=== PATIENT | female | born 1965 | race American Indian/Alaskan Native ===

== ENCOUNTER 2021-05-26 14:46 | Inpatient (IN) | payer MEDICARE ==
[2021-05-26] MEDS ORDERED: HYDROmorphone 1 MG/1 ML INJ IM ONE ×2 (17:24→18:00)
--- NOTE | 2021-05-26 17:59 | Event Note ---
ED Screening Note ED Screening Note: 55-year-old female presents to the ED complaining left femur pain unable to ambulate. Patient has a chronic history of chronic pain. This initial assessment/diagnostic orders/clinical plan/treatment(s) is/are subject to change based on patients health status, clinical progression and re- assessment by fellow clinical providers in the ED. Further treatment and workup at subsequent clinical providers discretion. Patient/guardian urged not to elope from the ED as their condition may be serious if not clinically assessed and managed. Initial orders include: X-ray imaging and medication
--- NOTE | 2021-05-26 18:06 | XRay Report ---
LEFT HIP 2 VIEW(S) INDICATION / CLINICAL INFORMATION: hip pain COMPARISON: None available. FINDINGS: BONES / JOINT(S): There is a moderately displaced subcapital femoral fracture. No significant arthrit is. SOFT TISSUES: No significant abnormality. ADDITIONAL FINDINGS: None. Signer Name: Kavon Egan DO Signed: 05/26/2021 6:01 PM Workstation Name: [id number]
[2021-05-26] MEDS ORDERED: ONDANSETRON 4 MG/2 ML INJ IV ONE (18:08)
--- NOTE | 2021-05-26 18:13 | Emergency Department Report ---
HPI - General Chief Complaint: Pain General Time Seen by Provider: 05/26/21 17:58 - [facility] HPI: Room 25 The patient is a 55-year-old female present with a chief complaint of left hip pain after fall. Patient states this morning while getting out of the bed she believes she did not put her shoe on completely and she fell twisting her left hip. Patient states she been unable to walk since. Patient denies loss of consciousness. Patient gives her pain a score of 10/10. Of note the patient states her daughter has a history of malignant hyperthermia ED Past Medical Hx - Past Medical History Additional medical history: Neurologic sarcoidosis, fibromyalgia, peripheral neuropathy, right foot drop - Surgical History Past Surgical History?: No Additional Surgical History: Back surgery, thyroid nodule removal - Family History Family history: other (Daughter with history of malignant hyperthermia) - Social History Smoking Status: Former Smoker (None x30 years) Substance Use Type: Alcohol (Rarely), Marijuana ED Review of Systems ROS: Stated complaint: FALL INJURY/LEG PAIN Other details as noted in HPI Constitutional: no symptoms reported Eyes: denies: eye pain ENT: denies: throat pain Respiratory: no symptoms reported Cardiovascular: denies: chest pain Endocrine: no symptoms reported Gastrointestinal: denies: abdominal pain Musculoskeletal: arthralgia Neurological: denies: headache Physical Exam - Physical Exam Vital Signs: Vital Signs 05/26/21 05/26/21 14:56 17:26 Temperature 98.3 F Pulse Rate 87 Respiratory 17 20 Rate Blood Pressure 118/90 [Right] O2 Sat by Pulse 99 Oximetry Physical Exam: GENERAL: The patient is well-developed well-nourished female lying on stretcher in the right lateral decubitus position appearing to be in moderate discomfort. [] HEENT: Normocephalic. Atraumatic. Extraocular motions are intact. Patient has moist mucous membranes. NECK: Supple. Trachea midline CHEST/LUNGS: Clear to auscultation. There is no respiratory distress noted. HEART/CARDIOVASCULAR: Regular. There is no tachycardia. There is no gallop rub or murmur. 2+ left DP ABDOMEN: Abdomen is soft, nontender. Patient has normal bowel sounds. There is no abdominal distention. SKIN: There is no rash. There is no edema. There is no diaphoresis. NEURO: The patient is awake, alert, and oriented. The patient is cooperative. The patient has no focal neurologic deficits. The patient has normal speech. GCS 15 MUSCULOSKELETAL: There is pain and decreased range of motion of the left hip. ED Course Vital Signs 05/26/21 05/26/21 14:56 17:26 Temperature 98.3 F Pulse Rate 87 Respiratory 17 20 Rate Blood Pressure 118/90 [Right] O2 Sat by Pulse 99 Oximetry - Consultations Consultation #1: 05/26/21 18:10 Orthopedic surgery paged 05/26/21 18:41 Case discussed with and x-ray results sent to orthopedic surgeon Dr. Valentin ED Medical Decision Making - Radiology Data Radiology results: report reviewed (Right hip x-ray), image reviewed (Left hip x-ray) interpreted by me: Left hip [id number] neck fracture [facility] [address] [place] [address] XRay Report Signed Patient: FAUSTINO HUMPHREY MR#: [id number] : 1965 Acct:[id number] Age/Sex: 55 / F ADM Date: 05/26/21 Loc: ED Attending Dr: Ordering Physician: CHERYL SHIELDS Date of Service: 05/26/21 Procedure(s): XR hip 2-3V LT Accession Number(s): [id number] cc: CHERYL SHIELDS Fluoro Time In Minutes: LEFT HIP 2 VIEW(S) INDICATION / CLINICAL INFORMATION: hip pain COMPARISON: None available. FINDINGS: BONES / JOINT(S): There is a moderately displaced subcapital femoral fracture. No significant arthritis. SOFT TISSUES: No significant abnormality. ADDITIONAL FINDINGS: None. Signer Name: Kavon Ruff DO Signed: 05/26/2021 6:01 PM Workstation Name: [id number] Transcribed By: FAN Dictated By: KAVON RUFF DO Electronically Authenticated By: KAVON RUFF DO Signed Date/Time: 05/26/211800 DD/ 00 TD/TT: - Differential Diagnosis Femoral neck fracture Critical care attestation.: If time is entered above; I have spent that time in minutes in the direct care of this critically ill patient, excluding procedure time. ED Disposition Clinical Impression: Femoral neck fracture Disposition: 09 ADMITTED INPATIENT Is pt being admited?: Yes Does the pt Need Aspirin: No Condition: Stable Time of Disposition: 18:41 (Hospitalist called (Dr. Finch))
[2021-05-26 19:16] LABS: Hemoglobin 11.5 gm/dl (10.1-14.3); Mean Corpuscular HGB Conc 34 % (30-34); Mean Corpuscular Volume 86 fl (79-97); Red Blood Count 3.96 M/mm3 (3.65-5.03)
[2021-05-26 19:25] LABS: Platelet Count 164 K/mm3 (140-440)
[2021-05-26 19:27] LABS: BUN/Creatinine Ratio 2; Blood Urea Nitrogen 2 mg/dL (7-17); Calcium 9.7 mg/dL (8.4-10.2); Hemolysis Index 26; INR 0.95 (0.87-1.13)
--- NOTE | 2021-05-26 19:27 | History and Physical Report ---
History of Present Illness Date of examination: 05/26/21 Date of admission: May 26, 2021 Chief complaint: Left hip pain after a fall couple of hours ago History of present illness: 55-year-old female with history of fibromyalgia, neurologic sarcoidosis, peripheral neuropathy and right foot drop with frequent falls because of the right foot drop comes in for a fall followed by a left hip pain. Patient had a left ankle fracture few years ago and was put in a cast at that time. Patient attributes her falls to the right foot drop. Pain is about 8 on a scale of 1- 10. Exacerbated by movement. Relieved by rest. Pain is localized to the left hip region. Sharp in nature. Unable to walk. - Past Medical History Additional medical history: Neurologic sarcoidosis, fibromyalgia, peripheral n europathy, right foot drop - Surgical History Past Surgical History?: No Additional Surgical History: Back surgery, thyroid nodule removal - Family History Family history: other (Daughter with history of malignant hyperthermia) - Social History Smoking Status: Former Smoker (None x30 years) Substance Use Type: Alcohol (Rarely), Marijuana Review of Systems ROS: Stated complaint: FALL INJURY/LEG PAIN Other details as noted in HPI Constitutional: no symptoms reported Eyes: denies: eye pain ENT: denies: throat pain Respiratory: no symptoms reported Cardiovascular: denies: chest pain Endocrine: no symptoms reported Gastrointestinal: denies: abdominal pain Musculoskeletal: arthralgia Neurological: denies: headache Medications and Allergies Allergies Allergy/AdvReac Type Severity Reaction Status Date / Time erythromycin base Allergy Unknown Verified 05/26/21 17:10 methotrexate Allergy Rash Verified 05/26/21 17:10 Exam - Constitutional Vitals: Temp Pulse Resp BP Pulse Ox 98.3 F 87 20 118/90 99 05/26/21 14:56 05/26/21 14:56 05/26/21 17:26 05/26/21 14:56 05/26/21 14:56 General appearance: Present: no acute distress, well-nourished - EENT Eyes: Present: PERRL ENT: hearing intact, clear oral mucosa - Neck Neck: Present: supple, normal ROM - Respiratory Respiratory effort: normal Respiratory: bilateral: CTA - Cardiovascular Heart rate: 78 Rhythm: regular Heart Sounds: Present: S1 & S2. Absent: rub, click - Extremities Extremities: no ischemia, pulses symmetrical, No edema, abnormal (Decreased range of motion at the left hip) Extremity abnormal: deformity, other (Decreased range of motion in the left hip) Peripheral Pulses: within normal limits - Abdominal General gastrointestinal: Present: soft, non-tender, non-distended, normal bowel sounds Female genitourinary: Present: normal - Integumentary Integumentary: Present: clear, warm, dry - Musculoskeletal Musculoskeletal: gait normal, strength equal bilaterally - Psychiatric Psychiatric: appropriate mood/affect, intact judgment & insight - Neurologic Neurologic: CNII-XII intact, moves all extremities Results - Labs CBC & Chem 7: 05/26/21 18:41 05/26/21 18:41 Labs: Laboratory Last Values WBC 9.5 K/mm3 (4.5-11.0) 05/26/21 18:41 RBC 3.96 M/mm3 (3.65-5.03) 05/26/21 18:41 Hgb 11.5 gm/dl (10.1-14.3) 05/26/21 18:41 Hct 34.0 % (30.3-42.9) 05/26/21 18:41 MCV 86 fl (79-97) 05/26/21 18:41 MCH 29 pg (28-32) 05/26/21 18:41 MCHC 34 % (30-34) 05/26/21 18:41 RDW 14.0 % (13.2-15.2) 05/26/21 18:41 Plt Count 164 K/mm3 (140-440) 05/26/21 18:41 Seg Neutrophils % Diamond Selector 05/26/21 18:41 Short CBC 05/26/21 Range/Units 18:41 WBC 9.5 (4.5-11.0) K/mm3 Hgb 11.5 (10.1-14.3) gm/dl Hct 34.0 (30.3-42.9) % Plt Count 164 (140-440) K/mm3 BMP 05/26/21 18:41 Sodium 138 Potassium 3.6 Chloride 102.6 Carbon Dioxide 19 L BUN 2 L Creatinine 0.9 Glucose 94 Calcium 9.7 - Imaging and Cardiology Imaging and Cardiology: Left hip x-ray There is a moderately displaced subcapital femoral fracture. No significant arthritis. Assessment and Plan Advance Directives: Yes (Full code) VTE prophylaxis?: Chemical Plan of care discussed with patient/family: Yes - Patient Problems (1) Femoral neck fracture Current Visit: Yes Status: Acute Qualifiers: Encounter type: initial encounter Laterality: left Plan to address problem: Orthopedic surgery consulted Patient may go for surgery tomorrow in the morning Patient has family history of malignant hyperthermia secondary to general anesthesia Patient daughter had malignant hyperthermia and patient is concerned about general anesthesia Patient wants to talk with the anesthesiologist (2) Fibromyalgia Current Visit: Yes Status: Chronic Plan to address problem: Patient is not on any medications as per reconciliation sheet We will reconcile the medicines later (3) Peripheral neuropathy Current Visit: Yes Status: Chronic Qualifiers: Peripheral neuropathy type: polyneuropathy, unspecified Qualified Code(s): G62.9 - Polyneuropathy, unspecified Plan to address problem: Patient on gabapentin (4) Sarcoidosis of other sites Current Visit: Yes Status: Chronic Plan to address problem: Patient has neurologic sarcoidosis which resulted in right foot drop Supportive care We will get occupational therapy and physical therapy involved (5) DVT prophylaxis Current Visit: Yes Status: Acute Plan to address problem: On anticoagulation GI prophylaxis (6) Advance care planning Current Visit: Yes Status: Acute Plan to address problem: Disease education conducted, care plan discussed, diagnosis discussed, prognosis discussed. Patient is full code. Patient acknowledges understanding and agreement with care plan. +30 minutes.
[2021-05-26 19:28] LABS: Partial Thromboplastin Time 29.7 Sec. (24.2-36.6)
[2021-05-26] MEDS ORDERED: ONDANSETRON 4 MG/2 ML INJ IV PRN (19:29)
[2021-05-26] MEDS ORDERED: oxyCODONE /ACETAMINOPHEN 5-325MG TAB PO PRN (19:29)
[2021-05-26] MEDS ORDERED: ACETAMINOPHEN 325 MG TAB PO PRN (19:29)
[2021-05-26] MEDS: MORPHINE 2 MG/1 ML INJ IV PRN (20:10)
[2021-05-26 21:29] LABS: Anisocytosis 1+; Basophils % (Manual) 0 % (0.0-1.8); Total Cells Counted 100
[2021-05-26 21:33] LABS: Platelet Estimate Consistent w Auto
[2021-05-26] MEDS: HEPARIN 5,000 UNIT/1 ML VIAL SUB-Q SCH (23:06)
[2021-05-27] MEDS: SODIUM CHLORIDE 0.45% 1000 ML 1,000 ML IV SCH ×2 (00:12→21:57)
[2021-05-27] MEDS: MORPHINE 2 MG/1 ML INJ IV PRN ×2 (05:53→10:10)
--- NOTE | 2021-05-27 07:04 | Event Note ---
Date: 05/26/21 Patient is concerned about general anesthesia because one of her family members had malignant hyperthermia. Patient wants to discuss with anesthesia during consultation
--- NOTE | 2021-05-27 09:17 | Progress Note ---
Assessment and Plan Assessment and plan: #Moderately displaced subcapital left femoral fracture Fracture visualized on hip x-ray Orthopedic surgery consulted; appreciate recs Pending surgical repair on 05/28/2021 --> bipolar hemiarthroplasty Making NPO at midnight and ordering coags Continue as needed analgesics and DVT prophylaxis Ordering PT eval #Fibromyalgia Currently not taking any medications. Continue as needed analgesics #Peripheral neuropathy Continue home gabapentin 300 mg every 8 hours #Neurological sarcoidosis Resulted in right foot drop per chart review #Advanced care planning -Disease education conducted, care plan discussed, diagnoses discussed, prognosis discussed, and patient acknowledges understanding with care plan -Time: +30 min Disposition Plan: Continue medical management Total Time Spent with Patient (Minutes): 30 minutes History Interval history: No acute events overnight. Hospitalist Physical - Constitutional Vitals: Temp Pulse Resp BP Pulse Ox 98.8 F 68 18 106/68 97 05/27/21 05:32 05/27/21 05:32 05/27/21 05:32 05/27/21 05:32 05/27/21 05:32 General appearance: Present: no acute distress, well-nourished - EENT Eyes: Present: PERRL, EOM intact ENT: hearing intact, clear oral mucosa, dentition normal - Neck Neck: Present: supple, normal ROM - Respiratory Respiratory effort: normal Respiratory: bilateral: CTA - Cardiovascular Rhythm: regular Heart Sounds: Present: S1 & S2 - Extremities Extremities: no ischemia, pulses intact, pulses symmetrical, normal temperature, normal color Extremity abnormal: tenderness (Significant tenderness of left hip, left buttock, and left lower leg.), other (Unable to mobilize left hip) Peripheral Pulses: within normal limits - Abdominal General gastrointestinal: soft, non-tender, non-distended, normal bowel sounds - Integumentary Integumentary: Present: clear, warm, dry - Psychiatric Psychiatric: appropriate mood/affect, intact judgment & insight, memory intact, cooperative - Neurologic Neurologic: CNII-XII intact, moves all extremities - Allied Health Allied health notes reviewed: nursing Results - Labs CBC & Chem 7: 05/26/21 18:41 05/26/21 18:41 Labs: Laboratory Last Values WBC 9.5 K/mm3 (4.5-11.0) 05/26/21 18:41 RBC 3.96 M/mm3 (3.65-5.03) 05/26/21 18:41 Hgb 11.5 gm/dl (10.1-14.3) 05/26/21 18:41 Hct 34.0 % (30.3-42.9) 05/26/21 18:41 MCV 86 fl (79-97) 05/26/21 18:41 MCH 29 pg (28-32) 05/26/21 18:41 MCHC 34 % (30-34) 05/26/21 18:41 RDW 14.0 % (13.2-15.2) 05/26/21 18:41 Plt Count 164 K/mm3 (140-440) 05/26/21 18:41 Add Manual Diff Complete 05/26/21 18:41 Total Counted 100 05/26/21 18:41 Seg Neutrophils % [employer] Serv[employer] 05/26/21 18:41 Seg Neuts % (Manual) 88.0 % (40.0-70.0) H 05/26/21 18:41 Band Neutrophils % 0 % 05/26/21 18:41 Lymphocytes % (Manual) 3.0 % (13.4-35.0) L 05/26/21 18:41 Reactive Lymphs % (Man) 0 % 05/26/21 18:41 Monocytes % (Manual) 8.0 % (0.0-7.3) H 05/26/21 18:41 Eosinophils % (Manual) 1.0 % (0.0-4.3) 05/26/21 18:41 Basophils % (Manual) 0 % (0.0-1.8) 05/26/21 18:41 Metamyelocytes % 0 % 05/26/21 18:41 Myelocytes % 0 % 05/26/21 18:41 Promyelocytes % 0 % 05/26/21 18:41 Blast Cells % 0 % 05/26/21 18:41 Nucleated RBC % Not Reportable 05/26/21 18:41 Seg Neutrophils # Man 8.4 K/mm3 (1.8-7.7) H 05/26/21 18:41 Band Neutrophils # 0.0 K/mm3 05/26/21 18:41 Lymphocytes # (Manual) 0.3 K/mm3 (1.2-5.4) L 05/26/21 18:41 Abs React Lymphs (Man) 0.0 K/mm3 05/26/21 18:41 Monocytes # (Manual) 0.8 K/mm3 (0.0-0.8) 05/26/21 18:41 Eosinophils # (Manual) 0.1 K/mm3 (0.0-0.4) 05/26/21 18:41 Basophils # (Manual) 0.0 K/mm3 (0.0-0.1) 05/26/21 18:41 Metamyelocytes # 0.0 K/mm3 05/26/21 18:41 Myelocytes # 0.0 K/mm3 05/26/21 18:41 Promyelocytes # 0.0 K/mm3 05/26/21 18:41 Blast Cells # 0.0 K/mm3 05/26/21 18:41 WBC Morphology Not Reportable 05/26/21 18:41 Hypersegmented Neuts Not Reportable 05/26/21 18:41 Hyposegmented Neuts Not Reportable 05/26/21 18:41 Hypogranular Neuts Not Reportable 05/26/21 18:41 Smudge Cells Not Reportable 05/26/21 18:41 Toxic Granulation Not Reportable 05/26/21 18:41 Toxic Vacuolation Not Reportable 05/26/21 18:41 Dohle Bodies Not Reportable 05/26/21 18:41 Pelger-Huet Anomaly Not Reportable 05/26/21 18:41 Judy Rods Not Reportable 05/26/21 18:41 Platelet Estimate Consistent w auto 05/26/21 18:41 Clumped Platelets Not Reportable 05/26/21 18:41 Plt Clumps, EDTA Not Reportable 05/26/21 18:41 Large Platelets Not Reportable 05/26/21 18:41 Giant Platelets Not Reportable 05/26/21 18:41 Platelet Satelliting Not Reportable 05/26/21 18:41 Plt Morphology Comment Not Reportable 05/26/21 18:41 RBC Morphology Not Reportable 05/26/21 18:41 Dimorphic RBCs Not Reportable 05/26/21 18:41 Polychromasia Not Reportable 05/26/21 18:41 Hypochromasia Not Reportable 05/26/21 18:41 Poikilocytosis Not Reportable 05/26/21 18:41 Anisocytosis 1+ 05/26/21 18:41 Microcytosis Not Reportable 05/26/21 18:41 Macrocytosis Not Reportable 05/26/21 18:41 Spherocytes Not Reportable 05/26/21 18:41 Pappenheimer Bodies Not Reportable 05/26/21 18:41 Sickle Cells Not Reportable 05/26/21 18:41 Target Cells Not Reportable 05/26/21 18:41 Tear Drop Cells Not Reportable 05/26/21 18:41 Ovalocytes Not Reportable 05/26/21 18:41 Helmet Cells Not Reportable 05/26/21 18:41 Mathew-Hanson Bodies Not Reportable 05/26/21 18:41 [place] Rings Not Reportable 05/26/21 18:41 Becky Cells Not Reportable 05/26/21 18:41 Bite Cells Not Reportable 05/26/21 18:41 Crenated Cell Not Reportable 05/26/21 18:41 Elliptocytes Not Reportable 05/26/21 18:41 Acanthocytes (Spur) Not Reportable 05/26/21 18:41 Rouleaux Not Reportable 05/26/21 18:41 Hemoglobin C Crystals Not Reportable 05/26/21 18:41 Schistocytes Not Reportable 05/26/21 18:41 Malaria parasites Not Reportable 05/26/21 18:41 Dg Bodies Not Reportable 05/26/21 18:41 Hem Pathologist Commnt No 05/26/21 18:41 PT 13.7 Sec. (12.2-14.9) 05/26/21 18:41 INR 0.95 (0.87-1.13) 05/26/21 18:41 APTT 29.7 Sec. (24.2-36.6) 05/26/21 18:41 Sodium 138 mmol/L (137-145) 05/26/21 18:41 Potassium 3.6 mmol/L (3.6-5.0) 05/26/21 18:41 Chloride 102.6 mmol/L (98-107) 05/26/21 18:41 Carbon Dioxide 19 mmol/L (22-30) L 05/26/21 18:41 Anion Gap 20 mmol/L 05/26/21 18:41 BUN 2 mg/dL (7-17) L 05/26/21 18:41 Creatinine 0.9 mg/dL (0.6-1.2) 05/26/21 18:41 Estimated GFR > 60 ml/min 05/26/21 18:41 BUN/Creatinine Ratio 2 % 05/26/21 18:41 Glucose 94 mg/dL (65-100) 05/26/21 18:41 Calcium 9.7 mg/dL (8.4-10.2) 05/26/21 18:41 Blood Type O POSITIVE 05/26/21 18:48 Antibody Screen Negative 05/26/21 18:48 [place]/IV: Voiding Method External Female Catheter Active Medications - Current Medications Current Medications: Generic Name Dose Route Start Last Admin Trade Name Freq PRN Reason Stop Dose Admin Acetaminophen 650 mg 05/26/21 19:29 Acetaminophen 325 Mg Tab PO Q4H PRN Pain MILD(1-3)/Fever >100.5/DIOP Gabapentin 300 mg 05/27/21 08:00 Gabapentin 300 Mg Cap PO Q8HR DIANA Heparin Sodium (Porcine) 5,000 unit 05/26/21 22:00 05/26/21 23:06 Heparin 5,000 Unit/1 Ml Vial SUB-Q 5,000 unit Q12HR DIANA Administration Sodium Chloride 1,000 mls @ 75 mls/hr 05/26/21 20:00 05/27/21 00:12 Nacl 0.45% 1000 Ml IV 75 mls/hr DIRECT DIANA Administration Morphine Sulfate 2 mg 05/26/21 19:29 05/27/21 05:53 Morphine 2 Mg/1 Ml Inj IV 2 mg Q4H PRN Administration Pain, Moderate (4-6) Ondansetron HCl 4 mg 05/26/21 19:29 Ondansetron 4 Mg/2 Ml Inj IV Q8H PRN Nausea And Vomiting Oxycodone/Acetaminophen 1 tab 05/26/21 19:29 05/27/21 01:03 Oxycodone /Acetaminophen 5-325mg Tab PO 1 tab Q6H PRN Administration Pain, Moderate (4-6) Sodium Chloride 10 ml 05/26/21 22:00 05/26/21 23:39 Sodium Chloride 0.9% 10 Ml Flush Syringe IV 10 ml BID DIANA Administration Sodium Chloride 10 ml 05/26/21 19:29 Sodium Chloride 0.9% 10 Ml Flush Syringe IV PRN PRN LINE FLUSH
[2021-05-27] MEDS: GABAPENTIN 300 MG CAP PO SCH ×2 (09:47→09:56)
[2021-05-27] MEDS: HEPARIN 5,000 UNIT/1 ML VIAL SUB-Q SCH ×2 (09:50→21:46)
[2021-05-27] MEDS ORDERED: NALOXONE 0.4 MG/1 ML INJ IV PRN (14:00)
--- NOTE | 2021-05-27 14:12 | Consultation ---
History of Present Illness - HPI History of present illness: ORTHOPAEDIC CONSULT Assessment: 1. Femoral neck fracture displaced, left hip; 2. Hx of immunosupp. therapy for psoriatic /neuro disease and (+) family hx of malignant hyperthermia ; Recommendation: 1. Bipolar hemiarthroplasty for LEFT HIP; 2. Physical therapy for partial weightbearing and strengthening LEFT lower extremity as per hip fracture recovery guidelines; 3. Appropriate pain management; 4. Possible discharge home on May 30 ; will require outpatient wound care on weekly basis, with homehealth wound care for the next 6 weeks following surgery; and HOME HEALTH P.T. ( x 3 weeks) Discussion: This is a 55-year-old female who had the misfortune of slipping and falling at home last evening landing on her left hip sustaining a injury that prevented her from being able to stand on the left side or tolerate the pain and swelling. She states that she has a right foot drop due to a chronic condition which appears to be an autoimmune illness with a neurologic component. 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 The remainder of the past medical history please see the admitting H&P. Examination of the left lower extremity; this is a healthy-appearing normal- sized middle-aged female in no acute distress. The left lower extremity is significantly shorter than the right with external rotation noted at the foot. She is able to do a straight leg compression but not able to lift the leg off of the bed. There is pain to palpation over the greater trochanter and over the anterior hip joint. She is unable to do a straight leg raise. The foot is neurovascularly intact on the left side. X-rays: There is a transverse subcapital fracture with complete displacement and the femoral head in varus position. The proximal femur has migrated approximately 2 to 3 cm (no significant osteoarthritis knee noted in either hip joint. Bone density is unremarkable) Medications and Allergies Allergies Allergy/AdvReac Type Severity Reaction Status Date / Time erythromycin base Allergy Unknown Verified 05/26/21 17:10 methotrexate Allergy Rash Verified 05/26/21 17:10 Active Meds: Active Medications Acetaminophen (Acetaminophen 325 Mg Tab) 650 mg PO Q6H DIANA Heparin Sodium (Porcine) (Heparin 5,000 Unit/1 Ml Vial) 5,000 unit SUB-Q Q12HR DIANA Last Admin: 05/27/21 09:50 Dose: 5,000 unit Hydromorphone HCl (Hydromorphone 2 Mg/1 Ml Inj) 2 mg IV Q3H PRN PRN Reason: Pain , Severe (7-10) Sodium Chloride (Nacl 0.45% 1000 Ml) 1,000 mls @ 75 mls/hr IV DIRECT [facility] Last Admin: 05/27/21 00:12 Dose: 75 mls/hr Naloxone HCl (Naloxone 0.4 Mg/1 Ml Inj) 0.1 mg IV Q2MIN PRN PRN Reason: Res Rate </= 8 or 02 SAT < 92% Ondansetron HCl (Ondansetron 4 Mg/2 Ml Inj) 4 mg IV Q8H PRN PRN Reason: Nausea And Vomiting Oxycodone HCl (Oxycodone 5 Mg Tab) 5 mg PO Q6H [facility] Polyethylene Glycol (Polyethylene Glycol 3350 17 Gm Powder) 17 gm PO BID [facility] Senna (Sennosides 8.6 Mg Tab) 8.6 mg PO DAILY [facility] Sodium Chloride (Sodium Chloride 0.9% 10 Ml Flush Syringe) 10 ml IV BID [facility] Last Admin: 05/27/21 09:47 Dose: 10 ml Sodium Chloride (Sodium Chloride 0.9% 10 Ml Flush Syringe) 10 ml IV PRN PRN PRN Reason: LINE FLUSH
[2021-05-27] MEDS: HYDROmorphone 2 MG/1 ML INJ IV PRN (14:42)
[2021-05-27] MEDS: SENNOSIDES 8.6 MG TAB PO SCH (17:38)
[2021-05-27] MEDS: ACETAMINOPHEN 325 MG TAB PO SCH (17:38)
[2021-05-27] MEDS: POLYETHYLENE GLYCOL 3350 17 GM POWDER PO SCH ×2 (17:38→23:20)
[2021-05-27] MEDS: oxyCODONE 5 MG TAB PO SCH (17:38)
[2021-05-28] MEDS: oxyCODONE 5 MG TAB PO SCH ×5 (01:15→23:17)
[2021-05-28] MEDS: ACETAMINOPHEN 325 MG TAB PO SCH ×5 (01:16→23:17)
[2021-05-28 06:22] LABS: Basophils % (Auto) 0.8 % (0.0-1.8); Eosinophils # (Auto) 0.3 K/mm3 (0.0-0.4); Eosinophils % (Auto) 4.8 % (0.0-4.3); Hematocrit 31.6 % (30.3-42.9); Hemoglobin 10.6 gm/dl (10.1-14.3); Lymphocytes # (Auto) 0.7 K/mm3 (1.2-5.4); Lymphocytes % (Auto) 12.8 % (13.4-35.0); Mean Corpuscular HGB Conc 34 % (30-34); Mean Corpuscular Volume 86 fl (79-97); Monocytes # (Auto) 0.3 K/mm3 (0.0-0.8); Monocytes % (Auto) 5.9 % (0.0-7.3); Platelet Count 142 K/mm3 (140-440); Red Blood Count 3.69 M/mm3 (3.65-5.03)
[2021-05-28 06:34] LABS: INR 0.92 (0.87-1.13)
[2021-05-28 06:39] LABS: Blood Urea Nitrogen 6 mg/dL (7-17); Calcium 8.6 mg/dL (8.4-10.2); Hemolysis Index 6
[2021-05-28 06:40] LABS: BUN/Creatinine Ratio 9
[2021-05-28] MEDS: POTASSIUM CHLORIDE ER 20 MEQ TAB PO NR ×2 (08:23→08:39)
[2021-05-28] MEDS: HYDROmorphone 2 MG/1 ML INJ IV PRN (08:24)
[2021-05-28] MEDS: SODIUM CHLORIDE 0.45% 1000 ML 1,000 ML IV SCH (08:26)
[2021-05-28] MEDS: HEPARIN 5,000 UNIT/1 ML VIAL SUB-Q SCH (10:44)
[2021-05-28] MEDS: SENNOSIDES 8.6 MG TAB PO SCH (10:45)
[2021-05-28] MEDS: POLYETHYLENE GLYCOL 3350 17 GM POWDER PO SCH ×2 (10:45→23:17)
--- NOTE | 2021-05-28 11:12 | Progress Note ---
Assessment and Plan Assessment and plan: #Moderately displaced subcapital left femoral fracture Fracture visualized on hip x-ray Orthopedic surgery consulted; appreciate recs Pending surgical repair on 05/28/2021 (today)--> bipolar hemiarthroplasty Can resume regular diet after procedure Continue as needed analgesics and DVT prophylaxis PT consulted; pending recs #Fibromyalgia Currently not taking any medications. 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 Hospitalist Physical - Constitutional Vitals: Temp Pulse Resp BP Pulse Ox 98.0 F 65 18 109/67 98 05/28/21 05:00 05/28/21 05:00 05/28/21 05:00 05/28/21 05:00 05/28/21 07:30 General appearance: Present: no acute distress, well-nourished - EENT Eyes: Present: PERRL, EOM intact ENT: hearing intact, clear oral mucosa, dentition normal - Neck Neck: Present: supple, normal ROM - Respiratory Respiratory effort: normal Respiratory: bilateral: CTA - Cardiovascular Rhythm: regular Heart Sounds: Present: S1 & S2 - Extremities Extremities: no ischemia, pulses intact, pulses symmetrical, normal temperature, normal color, abnormal (Significant tenderness of left hip that is acutely displaced) Peripheral Pulses: within normal limits - Abdominal General gastrointestinal: soft, non-tender, non-distended, normal bowel sounds - Integumentary Integumentary: Present: clear, warm, dry - Psychiatric Psychiatric: appropriate mood/affect, cooperative, other (Anxious) - Neurologic Neurologic: CNII-XII intact - Allied Health Allied health notes reviewed: nursing Results - Labs CBC & Chem 7: 05/28/21 05:06 05/28/21 05:06 Labs: Laboratory Last Values WBC 5.7 K/mm3 (4.5-11.0) 05/28/21 05:06 RBC 3.69 M/mm3 (3.65-5.03) 05/28/21 05:06 Hgb 10.6 gm/dl (10.1-14.3) 05/28/21 05:06 Hct 31.6 % (30.3-42.9) 05/28/21 05:06 MCV 86 fl (79-97) 05/28/21 05:06 MCH 29 pg (28-32) 05/28/21 05:06 MCHC 34 % (30-34) 05/28/21 05:06 RDW 14.0 % (13.2-15.2) 05/28/21 05:06 Plt Count 142 K/mm3 (140-440) 05/28/21 05:06 Lymph % (Auto) 12.8 % (13.4-35.0) L 05/28/21 05:06 [place] % (Auto) 5.9 % (0.0-7.3) 05/28/21 05:06 Eos % (Auto) 4.8 % (0.0-4.3) H 05/28/21 05:06 Baso % (Auto) 0.8 % (0.0-1.8) 05/28/21 05:06 Lymph # (Auto) 0.7 K/mm3 (1.2-5.4) L 05/28/21 05:06 [place] # (Auto) 0.3 K/mm3 (0.0-0.8) 05/28/21 05:06 Eos # (Auto) 0.3 K/mm3 (0.0-0.4) 05/28/21 05:06 Baso # (Auto) 0.0 K/mm3 (0.0-0.1) 05/28/21 05:06 Add Manual Diff Complete 05/26/21 18:41 Total Counted 100 05/26/21 18:41 Seg Neutrophils % 75.7 % (40.0-70.0) H 05/28/21 05:06 Seg Neuts % (Manual) 88.0 % (40.0-70.0) H 05/26/21 18:41 Band Neutrophils % 0 % 05/26/21 18:41 Lymphocytes % (Manual) 3.0 % (13.4-35.0) L 05/26/21 18:41 Reactive Lymphs % (Man) 0 % 05/26/21 18:41 Monocytes % (Manual) 8.0 % (0.0-7.3) H 05/26/21 18:41 Eosinophils % (Manual) 1.0 % (0.0-4.3) 05/26/21 18:41 Basophils % (Manual) 0 % (0.0-1.8) 05/26/21 18:41 Metamyelocytes % 0 % 05/26/21 18:41 Myelocytes % 0 % 05/26/21 18:41 Promyelocytes % 0 % 05/26/21 18:41 Blast Cells % 0 % 05/26/21 18:41 Nucleated RBC % Not Reportable 05/26/21 18:41 Seg Neutrophils # 4.3 K/mm3 (1.8-7.7) 05/28/21 05:06 Seg Neutrophils # Man 8.4 K/mm3 (1.8-7.7) H 05/26/21 18:41 Band Neutrophils # 0.0 K/mm3 05/26/21 18:41 Lymphocytes # (Manual) 0.3 K/mm3 (1.2-5.4) L 05/26/21 18:41 Abs React Lymphs (Man) 0.0 K/mm3 05/26/21 18:41 Monocytes # (Manual) 0.8 K/mm3 (0.0-0.8) 05/26/21 18:41 Eosinophils # (Manual) 0.1 K/mm3 (0.0-0.4) 05/26/21 18:41 Basophils # (Manual) 0.0 K/mm3 (0.0-0.1) 05/26/21 18:41 Metamyelocytes # 0.0 K/mm3 05/26/21 18:41 Myelocytes # 0.0 K/mm3 05/26/21 18:41 Promyelocytes # 0.0 K/mm3 05/26/21 18:41 Blast Cells # 0.0 K/mm3 05/26/21 18:41 WBC Morphology Not Reportable 05/26/21 18:41 Hypersegmented Neuts Not Reportable 05/26/21 18:41 Hyposegmented Neuts Not Reportable 05/26/21 18:41 Hypogranular Neuts Not Reportable 05/26/21 18:41 Smudge Cells Not Reportable 05/26/21 18:41 Toxic Granulation Not Reportable 05/26/21 18:41 Toxic Vacuolation Not Reportable 05/26/21 18:41 Dohle Bodies Not Reportable 05/26/21 18:41 Pelger-Huet Anomaly Not Reportable 05/26/21 18:41 Judy Rods Not Reportable 05/26/21 18:41 Platelet Estimate Consistent w auto 05/26/21 18:41 Clumped Platelets Not Reportable 05/26/21 18:41 Plt Clumps, EDTA Not Reportable 05/26/21 18:41 Large Platelets Not Reportable 05/26/21 18:41 Giant Platelets Not Reportable 05/26/21 18:41 Platelet Satelliting Not Reportable 05/26/21 18:41 Plt Morphology Comment Not Reportable 05/26/21 18:41 RBC Morphology Not Reportable 05/26/21 18:41 Dimorphic RBCs Not Reportable 05/26/21 18:41 Polychromasia Not Reportable 05/26/21 18:41 Hypochromasia Not Reportable 05/26/21 18:41 Poikilocytosis Not Reportable 05/26/21 18:41 Anisocytosis 1+ 05/26/21 18:41 Microcytosis Not Reportable 05/26/21 18:41 Macrocytosis Not Reportable 05/26/21 18:41 Spherocytes Not Reportable 05/26/21 18:41 Pappenheimer Bodies Not Reportable 05/26/21 18:41 Sickle Cells Not Reportable 05/26/21 18:41 Target Cells Not Reportable 05/26/21 18:41 Tear Drop Cells Not Reportable 05/26/21 18:41 Ovalocytes Not Reportable 05/26/21 18:41 Helmet Cells Not Reportable 05/26/21 18:41 [place] Bodies Not Reportable 05/26/21 18:41 [place] Rings Not Reportable 05/26/21 18:41 Becky Cells Not Reportable 05/26/21 18:41 Bite Cells Not Reportable 05/26/21 18:41 Crenated Cell Not Reportable 05/26/21 18:41 Elliptocytes Not Reportable 05/26/21 18:41 Acanthocytes (Spur) Not Reportable 05/26/21 18:41 Rouleaux Not Reportable 05/26/21 18:41 Hemoglobin C Crystals Not Reportable 05/26/21 18:41 Schistocytes Not Reportable 05/26/21 18:41 Malaria parasites Not Reportable 05/26/21 18:41 Dg Bodies Not Reportable 05/26/21 18:41 Hem Pathologist Commnt No 05/26/21 18:41 PT 13.4 Sec. (12.2-14.9) 05/28/21 05:06 INR 0.92 (0.87-1.13) 05/28/21 05:06 APTT 29.7 Sec. (24.2-36.6) 05/26/21 18:41 Sodium 140 mmol/L (137-145) 05/28/21 05:06 Potassium 3.4 mmol/L (3.6-5.0) L 05/28/21 05:06 Chloride 102.0 mmol/L (98-107) 05/28/21 05:06 Carbon Dioxide 26 mmol/L (22-30) D 05/28/21 05:06 Anion Gap 15 mmol/L 05/28/21 05:06 BUN 6 mg/dL (7-17) L 05/28/21 05:06 Creatinine 0.7 mg/dL (0.6-1.2) 05/28/21 05:06 Estimated GFR > 60 ml/min 05/28/21 05:06 BUN/Creatinine Ratio 9 % 05/28/21 05:06 Glucose 74 mg/dL (65-100) 05/28/21 05:06 POC Glucose 130 mg/dL (70-105) H 05/27/21 11:30 Calcium 8.6 mg/dL (8.4-10.2) 05/28/21 05:06 Blood Type O POSITIVE 05/26/21 18:48 Antibody Screen Negative 05/26/21 18:48 [place]/IV: Voiding Method External Female Catheter Active Medications - Current Medications Current Medications: Generic Name Dose Route Start Last Admin Trade Name Freq PRN Reason Stop Dose Admin Acetaminophen 650 mg 05/27/21 14:00 05/28/21 08:39 Acetaminophen 325 Mg Tab PO Not Given Q6H DIANA Heparin Sodium (Porcine) 5,000 unit 05/26/21 22:00 05/28/21 10:44 Heparin 5,000 Unit/1 Ml Vial SUB-Q Not Given Q12HR DIANA Hydromorphone HCl 2 mg 05/27/21 14:00 05/28/21 08:24 Hydromorphone 2 Mg/1 Ml Inj IV 2 mg Q3H PRN Administration Pain , Severe (7-10) Sodium Chloride 1,000 mls @ 75 mls/hr 05/26/21 20:00 05/28/21 08:26 Nacl 0.45% 1000 Ml IV 75 mls/hr DIRECT DIANA Administration Naloxone HCl 0.1 mg 05/27/21 14:00 Naloxone 0.4 Mg/1 Ml Inj IV Q2MIN PRN Res Rate </= 8 or 02 SAT < 92% Ondansetron HCl 4 mg 05/26/21 19:29 Ondansetron 4 Mg/2 Ml Inj IV Q8H PRN Nausea And Vomiting Oxycodone HCl 5 mg 05/27/21 14:00 05/28/21 08:39 Oxycodone 5 Mg Tab PO Not Given Q6H DIANA Polyethylene Glycol 17 gm 05/27/21 14:00 05/28/21 10:45 Polyethylene Glycol 3350 17 Gm Powder PO Not Given BID DIANA Potassium Chloride 40 meq 05/28/21 08:00 05/28/21 08:39 Potassium Chloride Er 20 Meq Tab PO 05/28/21 12:00 Not Given ONCE@0800 NR Senna 8.6 mg 05/27/21 14:00 05/28/21 10:45 Sennosides 8.6 Mg Tab PO Not Given DAILY DIANA Sodium Chloride 10 ml 05/26/21 22:00 05/28/21 10:45 Sodium Chloride 0.9% 10 Ml Flush Syringe IV Not Given BID DIANA Sodium Chloride 10 ml 05/26/21 19:29 Sodium Chloride 0.9% 10 Ml Flush Syringe IV PRN PRN LINE FLUSH
[2021-05-28] MEDS ORDERED: LACTATED RINGERS 1,000 ML ONE (12:01)
[2021-05-28] MEDS ORDERED: LIDOCAINE MPF (2%) 20 MG/1 ML VIAL 5 ML ONE (12:17)
[2021-05-28] MEDS ORDERED: HYDROmorphone 1 MG/1 ML INJ ONE (12:18)
[2021-05-28] MEDS ORDERED: MIDAZOLAM 2 MG/2 ML INJ ONE ×2 (12:19→14:43)
[2021-05-28] MEDS ORDERED: KETAMINE/STERILE WATER 50 MG/ML SYRINGE ONE (12:19)
[2021-05-28] MEDS ORDERED: CLINDAMYCIN 600 MG/50 mL 600 MG/50 ML BAG IV ONE (12:27)
--- NOTE | 2021-05-28 12:27 | Anesthesia Consultation ---
Anesthesia Consult and Med Hx Date of service: 05/28/21 - Airway Anesthetic Teeth Evaluation: Good ROM Head & Neck: Adequate Mental/Hyoid Distance: Adequate Mallampati Class: Class II Intubation Access Assessment: Probably Good - Pre-Operative Health Status ASA Pre-Surgery Classification: ASA3 Proposed Anesthetic Plan: General - Pre-Anesthesia Comment Pre-Anesthesia Comments: Patient states that her daughter had adverse anesthetic reaction suspicious for malignant hyperthermia during surgery as a child though this was never confirmed with testing. Since then, patient has received non- triggering anesthetics. Discussed neuraxial vs non-triggering GA/TIVA. Patient has had several lumbar procedures and spinal taps w/ associated chronic pain and therefore requests GA. Will proceed with TIVA w/ MH precautions. - Pulmonary Hx Smoking: Yes Hx Asthma: Yes Hx Respiratory Symptoms: No - Cardiovascular System Hx Hypertension: No Hx Heart Attack/AMI: No - Central Nervous System Hx Neuromuscular Disorder: Yes (neurologic sarcoidosis, peripheral neuropathy, right foot drop) CVA: No Hx Back Pain: Yes (fibromyalgia and chronic pain, lortab 3.5 tabs per day at baseline) Hx Psychiatric Problems: Yes - Endocrine Hx Renal Disease: No Hx Liver Disease: No Hx Insulin Dependent Diabetes: No Hx Non-Insulin Dependent Diabetes: No Hx Thyroid Disease: No - Hematic Hx Anemia: Yes - Other Systems Hx Obesity: No
[2021-05-28] MEDS ORDERED: GENTAMICIN/NS 80 MG/100 ML 100 ML IV ONE (12:28)
[2021-05-28] MEDS ORDERED: ONDANSETRON 4 MG/2 ML INJ IV PRN (12:30)
[2021-05-28] MEDS ORDERED: HYDROmorphone 1 MG/1 ML INJ IV PRN (12:30)
[2021-05-28] MEDS ORDERED: GENTAMICIN 80 MG in SODIUM CHLORIDE 0.9% 100 ML IV SCH (12:30)
--- NOTE | 2021-05-28 12:30 | Anesthesia Day of Surgery ---
Anesthesia Day of Surgery - Day of Surgery Patient Examined: Yes Patient H&P Reviewed: Yes Patient is NPO: Yes
[2021-05-28] MEDS ORDERED: LACTATED RINGERS 1,000 ML IV SCH (12:45)
[2021-05-28] MEDS ORDERED: ceFAZolin/STERILE WATER 2 GM/20 ML SYRINGE IV NR (13:00)
[2021-05-28] MEDS ORDERED: CLINDAMYCIN 600 MG/50 mL 600 MG/50 ML BAG IV NR (13:00)
[2021-05-28] MEDS ORDERED: PHENYLEPHRINE/NS 1,000 MCG/10 ML SYRINGE (OR USE) IV ONE (13:13)
[2021-05-28] MEDS ORDERED: NEOMY 40 MG/POLYMYXIN B 200,000 UNITS/ML (GU) AMPULE IR ONE ×2 (13:52→15:06)
[2021-05-28] MEDS ORDERED: SODIUM CHLORIDE 0.9% IRRIG SOLN 2000 ML IR ONE (13:59)
--- NOTE | 2021-05-28 15:50 | Operative Report ---
Operative Report Operative Report: OPERATIVE REPORT Preop diagnosis : 1. Femoral neck fracture, displaced, left hip Postop diagnosis: Same Procedure: Bipolar hemiarthroplasty, left hip Surgeon: Edvin Valentin MD payroll and benefits assistant: none Anesthesia: General with LMA Details of operative technique: After being appropriately prepared and cleared for surgery the patient was brought to the operating room and the correct site was identified. General anesthesia was then administered utilizing an LMA. The patient was then placed in the decubitus position with the left hip up and all pressure points were well-padded. An axillary roll was placed under the appropriate side. The hip was then prepped and draped in the usual sterile fashion utilizing ChloraPrep solution as per total hip protocol. A space suit was utilized by the surgeon. Antibiotics were administered IV prior to the start of the case in the form of clindamycin. The circulating nurse then called a timeout and once again the correct site was identified. The hip was opened through a straight anterolateral approach. Dissection was carried down through the fibrofatty layer and bleeders were clamped and cauterized with the Bovie. The tensor fascia dick was split the length of the incision and the Charnley retractor was carefully placed. The leg was then externally rotated and the gluteus medius and minimus were removed from the trochanter. Capsulectomy was performed revealing fracture hematoma and debris; the femoral head was then removed and sized on the back table. Neck cut was then made with an oscillating saw and the leg was placed into the sterile bag. Attention was then turned toward the proximal femur. A box osteotome was utilized to create a lateral starting position. The femur was then prepared with broaches sequentially up to a size #12. A trial reduction was then carried out with the #[address]. Patient required a 0 neck length and standard offset with the 28 mm inside diameter and 44 mm outside diameter bipolar head. This was placed on the broach and the hip was reduced. Excellent stability was noted with the trial reduction. Patient was stable with full extension and external rotation as well as 90 degrees of hip flexion and internal rotation. Leg lengths were also normalized. Shuck test was negative. Proximal femur was then irrigated copiously with antibiotic saline. A size #12 press-fit Synergy stem made by [employer] was then impacted into place. Excellent rotational stability was achieved. +0 neck length with bipolar head was attached and the hip was once again reduced. Again excellent stability was confirmed in all planes. Wound was then irrigated thoroughly with antibiotic solution. The abductors were repaired with #1 Vicryl. Repair was oversewn with 0 Vicryl as well. Tensor fascia dick was reapproximated with #1 Vicryl running locking suture. Subcutaneous layer was closed with 2-0 Vicryl and the skin was reapproximated with the adhesive skin clip (ZIPline) system. A compressive dressing was then applied. The patient was then awakened and taken to recovery room in excellent condition. Estimated blood loss: 200 cc Drains : None Complications: None
--- NOTE | 2021-05-28 16:03 | Post Anesthesia Evaluation ---
- Post Anesthesia Evaluation Patient Participated: Yes Airway Patent: Yes Stable Respiratory Function: Yes Nausea/Vomiting: No Temp > 96.8F: Yes Pain Manageable: Yes Adequeate Hydration: Yes Anesthesia Complications: No
[2021-05-28] MEDS: CLINDAMYCIN 600 MG/50 mL 600 MG/50 ML BAG IV SCH (17:10)
[2021-05-28 21:05] LABS: Hematocrit 26.9 % (30.3-42.9); Hemoglobin 8.7 gm/dl (10.1-14.3); Mean Corpuscular HGB Conc 32 % (30-34); Mean Corpuscular Volume 87 fl (79-97); Platelet Count 162 K/mm3 (140-440); Red Blood Count 3.11 M/mm3 (3.65-5.03)
[2021-05-28 21:16] LABS: INR 0.92 (0.87-1.13)
[2021-05-28 21:17] LABS: Partial Thromboplastin Time 30.3 Sec. (24.2-36.6)
[2021-05-28] MEDS: APIXABAN 5 MG TAB PO SCH (23:23)
[2021-05-29] MEDS: CLINDAMYCIN 600 MG/50 mL 600 MG/50 ML BAG IV SCH ×2 (00:03→09:16)
[2021-05-29] MEDS ORDERED: SODIUM CHLORIDE 0.9% 500 ML 500 ML IV ONE ×2 (03:05→05:28)
[2021-05-29] MEDS: oxyCODONE 5 MG TAB PO SCH ×4 (03:20→20:19)
[2021-05-29] MEDS: ACETAMINOPHEN 325 MG TAB PO SCH ×4 (03:21→21:42)
[2021-05-29 04:32] LABS: Basophils % (Auto) 0.3 % (0.0-1.8); Eosinophils # (Auto) 0.1 K/mm3 (0.0-0.4); Eosinophils % (Auto) 1.8 % (0.0-4.3); Hematocrit 22.6 % (30.3-42.9); Hemoglobin 7.1 gm/dl (10.1-14.3); Lymphocytes # (Auto) 0.3 K/mm3 (1.2-5.4); Lymphocytes % (Auto) 4.8 % (13.4-35.0); Mean Corpuscular HGB Conc 32 % (30-34); Mean Corpuscular Volume 86 fl (79-97); Monocytes # (Auto) 0.4 K/mm3 (0.0-0.8); Monocytes % (Auto) 6.4 % (0.0-7.3); Platelet Count 133 K/mm3 (140-440); Red Blood Count 2.63 M/mm3 (3.65-5.03); Red Cell Distribution Width 13.6 % (13.2-15.2)
[2021-05-29] MEDS: SODIUM CHLORIDE 0.45% 1000 ML 1,000 ML IV SCH ×2 (04:44→20:27)
[2021-05-29 04:51] LABS: BUN/Creatinine Ratio 10; Blood Urea Nitrogen 8 mg/dL (7-17); Calcium 7.3 mg/dL (8.4-10.2); Hemolysis Index 0
--- NOTE | 2021-05-29 08:00 | Progress Note ---
Assessment and Plan Assessment and plan: #Moderately displaced subcapital left femoral fracture #POD#1 s/p L bipolar hemiarthroplasty Continue as needed analgesics and DVT prophylaxis PT consulted; pending recs #Fibromyalgia Currently not taking any medications. Continue as needed analgesics #Peripheral neuropathy Continue home gabapentin 300 mg every 8 hours #Neurological sarcoidosis Resulted in right foot drop, stable #Hypokalemia -will replete and monitor #Advanced care planning -Disease education conducted, care plan discussed, diagnoses discussed, prognosis discussed, and patient acknowledges understanding with care plan -Time: +30 min Disposition Plan: pending PT recommendations History Interval history: No acute events overnight. Patient reports stiffness and occasional pain at the left leg. No other complaints at this time. Hospitalist Physical - Physical exam Narrative exam: GENERAL: Well-developed well-nourished. In no acute distress. HEENT: Normocephalic. Atraumatic. CHEST/LUNGS: CTAB on room air HEART/CARDIOVASCULAR: RRR. No murmur, rubs or gallops appreciated. ABDOMEN: +BS. NT/ND. SKIN: No rashes noted. NEURO: No focal motor deficit. Follows all commands. MUSCULOSKELETAL: No joint effusion EXTREMITIES: L hip bandage in place, c/d/i. R foot drop. PSYCH: Cooperative. - Constitutional Vitals: Temp Pulse Resp BP Pulse Ox 99.0 F 75 18 72/41 97 05/29/21 05:19 05/29/21 05:19 05/29/21 05:19 05/29/21 05:19 05/29/21 07:00 General appearance: Present: no acute distress, well-nourished Results - Labs CBC & Chem 7: 05/29/21 04:17 05/29/21 04:17 Labs: Laboratory Last Values WBC 6.8 K/mm3 (4.5-11.0) 05/29/21 04:17 RBC 2.63 M/mm3 (3.65-5.03) L 05/29/21 04:17 Hgb 7.1 gm/dl (10.1-14.3) L 05/29/21 04:17 Hct 22.6 % (30.3-42.9) L 05/29/21 04:17 MCV 86 fl (79-97) 05/29/21 04:17 MCH 27 pg (28-32) L 05/29/21 04:17 MCHC 32 % (30-34) 05/29/21 04:17 RDW 13.6 % (13.2-15.2) 05/29/21 04:17 Plt Count 133 K/mm3 (140-440) L 05/29/21 04:17 Lymph % (Auto) 4.8 % (13.4-35.0) L 05/29/21 04:17 [place] % (Auto) 6.4 % (0.0-7.3) 05/29/21 04:17 Eos % (Auto) 1.8 % (0.0-4.3) 05/29/21 04:17 Baso % (Auto) 0.3 % (0.0-1.8) 05/29/21 04:17 Lymph # (Auto) 0.3 K/mm3 (1.2-5.4) L 05/29/21 04:17 [place] # (Auto) 0.4 K/mm3 (0.0-0.8) 05/29/21 04:17 Eos # (Auto) 0.1 K/mm3 (0.0-0.4) 05/29/21 04:17 Baso # (Auto) 0.0 K/mm3 (0.0-0.1) 05/29/21 04:17 Add Manual Diff Complete 05/26/21 18:41 Total Counted 100 05/26/21 18:41 Seg Neutrophils % 86.7 % (40.0-70.0) H 05/29/21 04:17 Seg Neuts % (Manual) 88.0 % (40.0-70.0) H 05/26/21 18:41 Band Neutrophils % 0 % 05/26/21 18:41 Lymphocytes % (Manual) 3.0 % (13.4-35.0) L 05/26/21 18:41 Reactive Lymphs % (Man) 0 % 05/26/21 18:41 Monocytes % (Manual) 8.0 % (0.0-7.3) H 05/26/21 18:41 Eosinophils % (Manual) 1.0 % (0.0-4.3) 05/26/21 18:41 Basophils % (Manual) 0 % (0.0-1.8) 05/26/21 18:41 Metamyelocytes % 0 % 05/26/21 18:41 Myelocytes % 0 % 05/26/21 18:41 Promyelocytes % 0 % 05/26/21 18:41 Blast Cells % 0 % 05/26/21 18:41 Nucleated RBC % Not Reportable 05/26/21 18:41 Seg Neutrophils # 5.9 K/mm3 (1.8-7.7) 05/29/21 04:17 Seg Neutrophils # Man 8.4 K/mm3 (1.8-7.7) H 05/26/21 18:41 Band Neutrophils # 0.0 K/mm3 05/26/21 18:41 Lymphocytes # (Manual) 0.3 K/mm3 (1.2-5.4) L 05/26/21 18:41 Abs React Lymphs (Man) 0.0 K/mm3 05/26/21 18:41 Monocytes # (Manual) 0.8 K/mm3 (0.0-0.8) 05/26/21 18:41 Eosinophils # (Manual) 0.1 K/mm3 (0.0-0.4) 05/26/21 18:41 Basophils # (Manual) 0.0 K/mm3 (0.0-0.1) 05/26/21 18:41 Metamyelocytes # 0.0 K/mm3 05/26/21 18:41 Myelocytes # 0.0 K/mm3 05/26/21 18:41 Promyelocytes # 0.0 K/mm3 05/26/21 18:41 Blast Cells # 0.0 K/mm3 05/26/21 18:41 WBC Morphology Not Reportable 05/26/21 18:41 Hypersegmented Neuts Not Reportable 05/26/21 18:41 Hyposegmented Neuts Not Reportable 05/26/21 18:41 Hypogranular Neuts Not Reportable 05/26/21 18:41 Smudge Cells Not Reportable 05/26/21 18:41 Toxic Granulation Not Reportable 05/26/21 18:41 Toxic Vacuolation Not Reportable 05/26/21 18:41 Dohle Bodies Not Reportable 05/26/21 18:41 Pelger-Huet Anomaly Not Reportable 05/26/21 18:41 Judy Rods Not Reportable 05/26/21 18:41 Platelet Estimate Consistent w auto 05/26/21 18:41 Clumped Platelets Not Reportable 05/26/21 18:41 Plt Clumps, EDTA Not Reportable 05/26/21 18:41 Large Platelets Not Reportable 05/26/21 18:41 Giant Platelets Not Reportable 05/26/21 18:41 Platelet Satelliting Not Reportable 05/26/21 18:41 Plt Morphology Comment Not Reportable 05/26/21 18:41 RBC Morphology Not Reportable 05/26/21 18:41 Dimorphic RBCs Not Reportable 05/26/21 18:41 Polychromasia Not Reportable 05/26/21 18:41 Hypochromasia Not Reportable 05/26/21 18:41 Poikilocytosis Not Reportable 05/26/21 18:41 Anisocytosis 1+ 05/26/21 18:41 Microcytosis Not Reportable 05/26/21 18:41 Macrocytosis Not Reportable 05/26/21 18:41 Spherocytes Not Reportable 05/26/21 18:41 Pappenheimer Bodies Not Reportable 05/26/21 18:41 Sickle Cells Not Reportable 05/26/21 18:41 Target Cells Not Reportable 05/26/21 18:41 Tear Drop Cells Not Reportable 05/26/21 18:41 Ovalocytes Not Reportable 05/26/21 18:41 Helmet Cells Not Reportable 05/26/21 18:41 Mathew-[place] Bodies Not Reportable 05/26/21 18:41 [place] Rings Not Reportable 05/26/21 18:41 Becky Cells Not Reportable 05/26/21 18:41 Bite Cells Not Reportable 05/26/21 18:41 Crenated Cell Not Reportable 05/26/21 18:41 Elliptocytes Not Reportable 05/26/21 18:41 Acanthocytes (Spur) Not Reportable 05/26/21 18:41 Rouleaux Not Reportable 05/26/21 18:41 Hemoglobin C Crystals Not Reportable 05/26/21 18:41 Schistocytes Not Reportable 05/26/21 18:41 Malaria parasites Not Reportable 05/26/21 18:41 Dg Bodies Not Reportable 05/26/21 18:41 Hem Pathologist Commnt No 05/26/21 18:41 PT 13.4 Sec. (12.2-14.9) 05/28/21 20:31 INR 0.92 (0.87-1.13) 05/28/21 20:31 APTT 30.3 Sec. (24.2-36.6) 05/28/21 20:31 Sodium 135 mmol/L (137-145) L 05/29/21 04:17 Potassium 3.4 mmol/L (3.6-5.0) L 05/29/21 04:17 Chloride 100.2 mmol/L (98-107) 05/29/21 04:17 Carbon Dioxide 25 mmol/L (22-30) 05/29/21 04:17 Anion Gap 13 mmol/L 05/29/21 04:17 BUN 8 mg/dL (7-17) 05/29/21 04:17 Creatinine 0.8 mg/dL (0.6-1.2) 05/29/21 04:17 Estimated GFR > 60 ml/min 05/29/21 04:17 BUN/Creatinine Ratio 10 % 05/29/21 04:17 Glucose 153 mg/dL (65-100) H 05/29/21 04:17 POC Glucose 130 mg/dL (70-105) H 05/27/21 11:30 Calcium 7.3 mg/dL (8.4-10.2) L D 05/29/21 04:17 Blood Type O POSITIVE 05/26/21 18:48 Antibody Screen Negative 05/26/21 18:48 [place]/IV: Voiding Method External Female Catheter Active Medications - Current Medications Current Medications: Generic Name Dose Route Start Last Admin Trade Name Freq PRN Reason Stop Dose Admin Acetaminophen 650 mg 05/27/21 14:00 05/29/21 03:21 Acetaminophen 325 Mg Tab PO Not Given Q6H ON LICENSE OF [facility] Apixaban 10 mg 05/28/21 22:00 05/28/21 23:23 Apixaban 5 Mg Tab PO 06/04/21 10:01 Not Given Q12HR ON LICENSE OF [facility] Protocol Hydromorphone HCl 2 mg 05/27/21 14:00 05/28/21 08:24 Hydromorphone 2 Mg/1 Ml Inj IV 2 mg Q3H PRN Administration Pain , Severe (7-10) Sodium Chloride 1,000 mls @ 75 mls/hr 05/26/21 20:00 05/29/21 04:44 Nacl 0.45% 1000 Ml IV 75 mls/hr DIRECT DIANA Administration Lactated Ringer's 1,000 mls @ 100 mls/hr 05/28/21 12:45 Lactated Ringers IV 05/29/21 12:44 DIRECT DIANA Clindamycin HCl 600 mg in 50 mls @ 100 mls/hr 05/28/21 16:00 05/29/21 01:39 Cleocin 600 Mg/50 Ml IV 05/29/21 08:29 Infused Q8H DIANA Infusion Protocol Naloxone HCl 0.1 mg 05/27/21 14:00 Naloxone 0.4 Mg/1 Ml Inj IV Q2MIN PRN Res Rate </= 8 or 02 SAT < 92% Ondansetron HCl 4 mg 05/26/21 19:29 Ondansetron 4 Mg/2 Ml Inj IV Q8H PRN Nausea And Vomiting Oxycodone HCl 5 mg 05/27/21 14:00 05/29/21 03:20 Oxycodone 5 Mg Tab PO Not Given Q6H DIANA Polyethylene Glycol 17 gm 05/27/21 14:00 05/28/21 23:17 Polyethylene Glycol 3350 17 Gm Powder PO 17 gm BID DIANA Administration Senna 8.6 mg 05/27/21 14:00 05/28/21 10:45 Sennosides 8.6 Mg Tab PO Not Given DAILY DIANA Sodium Chloride 10 ml 05/26/21 22:00 05/28/21 23:25 Sodium Chloride 0.9% 10 Ml Flush Syringe IV 10 ml BID DIANA Administration Sodium Chloride 10 ml 05/26/21 19:29 Sodium Chloride 0.9% 10 Ml Flush Syringe IV PRN PRN LINE FLUSH
[2021-05-29] MEDS ORDERED: POTASSIUM CHLORIDE ER 20 MEQ TAB PO NR (08:30)
[2021-05-29] MEDS: POLYETHYLENE GLYCOL 3350 17 GM POWDER PO SCH ×2 (09:12→21:43)
[2021-05-29] MEDS: SENNOSIDES 8.6 MG TAB PO SCH (09:13)
[2021-05-29] MEDS: APIXABAN 5 MG TAB PO SCH (09:13)
[2021-05-29] MEDS ORDERED: NON-FORMULARY EACH (Gabapentin [Neurontin] 600 MG Tablet) PO SCH (16:15)
[2021-05-29] MEDS ORDERED: ALBUTEROL 8.5 GM MDI INHALATION IH PRN (16:15)
[2021-05-29] MEDS ORDERED: ALBUTEROL 2.5 MG/3 ML NEBU IH PRN (16:28)
[2021-05-29] MEDS ORDERED: OLOPATADINE HCL OU SCH (16:30)
[2021-05-29] MEDS ORDERED: BACLOFEN 10 MG TAB PO PRN (16:30)
[2021-05-29] MEDS ORDERED: SODIUM CHLORIDE 0.9% 500 ML 500 ML IV SCH (20:15)
[2021-05-29] MEDS: ALBUTEROL 2.5 MG/3 ML NEBU IH SCH (21:06)
[2021-05-29] MEDS: MYCOPHENOLATE 500 MG TAB PO SCH (21:42)
[2021-05-29] MEDS: NORTRIPTYLINE 10 MG CAP PO SCH (21:43)
[2021-05-29] MEDS: APIXABAN 2.5 MG TAB PO SCH (21:43)
[2021-05-30] MEDS ORDERED: SIMETHICONE 80 MG CHEW TAB PO PRN (01:07)
[2021-05-30] MEDS: ACETAMINOPHEN 325 MG TAB PO SCH ×4 (01:57→22:13)
[2021-05-30] MEDS: oxyCODONE 5 MG TAB PO SCH ×4 (01:58→22:12)
[2021-05-30 05:49] LABS: Mean Corpuscular HGB Conc 34 % (30-34); Mean Corpuscular Volume 85 fl (79-97); Platelet Count 132 K/mm3 (140-440); Red Blood Count 2.03 M/mm3 (3.65-5.03); Red Cell Distribution Width 13.7 % (13.2-15.2)
[2021-05-30 05:59] LABS: Hematocrit 17.2 % (30.3-42.9); Hemoglobin 5.8 gm/dl (10.1-14.3)
[2021-05-30] MEDS: GABAPENTIN 300 MG CAP PO SCH ×3 (06:00→21:58)
[2021-05-30] MEDS ORDERED: SODIUM CHLORIDE 0.9% 500 ML 500 ML IV ONE (06:02)
[2021-05-30 06:11] LABS: BUN/Creatinine Ratio 9; Blood Urea Nitrogen 7 mg/dL (7-17); Calcium 7.4 mg/dL (8.4-10.2); Hemolysis Index 0
[2021-05-30] MEDS ORDERED: SODIUM CHLORIDE 0.9% 500 ML 500 ML IV NR (07:38)
--- NOTE | 2021-05-30 07:47 | Progress Note ---
Assessment and Plan Assessment and plan: #Moderately displaced subcapital left femoral fracture #POD#2 s/p L bipolar hemiarthroplasty Continue as needed analgesics and DVT prophylaxis PT consulted recommending SNF placement, patient in agreement #Normocytic anemia -Patient reports history of hemorrhoids with upcoming colonoscopy outpatient -Hemoglobin dropped to 5.8/17.2, baseline unknown -No overt bleeding at this time -2 units of packed red blood cells were ordered -Transfuse for hemoglobin less than 7 -iron studies suggestive of SHAHLA; iron supplementation prior to d/c -Hematology/Oncology consulted for further recommendations #Fibromyalgia Currently taking mycophenolate #Peripheral neuropathy Continue home gabapentin 300 mg every 8 hours #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 Patient concerned about recent lab values. Continues to have stiffness and pain at the left hip. No other complaints at this time. Hospitalist Physical - Physical exam Narrative exam: GENERAL: Well-developed well-nourished. In no acute distress. HEENT: Normocephalic. Atraumatic. CHEST/LUNGS: CTAB on room air HEART/CARDIOVASCULAR: RRR. No murmur, rubs or gallops appreciated. ABDOMEN: +BS. NT/ND. SKIN: No rashes noted. NEURO: No focal motor deficit. Follows all commands. MUSCULOSKELETAL: No joint effusion EXTREMITIES: L hip bandage in place, c/d/i. R foot drop. PSYCH: Cooperative. - Constitutional Vitals: Temp Pulse Resp BP Pulse Ox 98.4 F 79 16 96/60 99 05/30/21 04:14 05/30/21 04:14 05/30/21 04:14 05/30/21 04:14 05/30/21 04:14 General appearance: Present: no acute distress, well-nourished Results - Labs CBC & Chem 7: 05/31/21 06:05 05/31/21 06:05 Labs: Laboratory Last Values WBC 7.4 K/mm3 (4.5-11.0) 05/30/21 05:08 RBC 2.03 M/mm3 (3.65-5.03) L 05/30/21 05:08 Hgb 5.8 gm/dl (10.1-14.3) L* 05/30/21 05:08 Hct 17.2 % (30.3-42.9) L* 05/30/21 05:08 MCV 85 fl (79-97) 05/30/21 05:08 MCH 29 pg (28-32) 05/30/21 05:08 MCHC 34 % (30-34) 05/30/21 05:08 RDW 13.7 % (13.2-15.2) 05/30/21 05:08 Plt Count 132 K/mm3 (140-440) L 05/30/21 05:08 Lymph % (Auto) 4.8 % (13.4-35.0) L 05/29/21 04:17 [place] % (Auto) 6.4 % (0.0-7.3) 05/29/21 04:17 Eos % (Auto) 1.8 % (0.0-4.3) 05/29/21 04:17 Baso % (Auto) 0.3 % (0.0-1.8) 05/29/21 04:17 Lymph # (Auto) 0.3 K/mm3 (1.2-5.4) L 05/29/21 04:17 [place] # (Auto) 0.4 K/mm3 (0.0-0.8) 05/29/21 04:17 Eos # (Auto) 0.1 K/mm3 (0.0-0.4) 05/29/21 04:17 Baso # (Auto) 0.0 K/mm3 (0.0-0.1) 05/29/21 04:17 Add Manual Diff Complete 05/26/21 18:41 Total Counted 100 05/26/21 18:41 Seg Neutrophils % 86.7 % (40.0-70.0) H 05/29/21 04:17 Seg Neuts % (Manual) 88.0 % (40.0-70.0) H 05/26/21 18:41 Band Neutrophils % 0 % 05/26/21 18:41 Lymphocytes % (Manual) 3.0 % (13.4-35.0) L 05/26/21 18:41 Reactive Lymphs % (Man) 0 % 05/26/21 18:41 Monocytes % (Manual) 8.0 % (0.0-7.3) H 05/26/21 18:41 Eosinophils % (Manual) 1.0 % (0.0-4.3) 05/26/21 18:41 Basophils % (Manual) 0 % (0.0-1.8) 05/26/21 18:41 Metamyelocytes % 0 % 05/26/21 18:41 Myelocytes % 0 % 05/26/21 18:41 Promyelocytes % 0 % 05/26/21 18:41 Blast Cells % 0 % 05/26/21 18:41 Nucleated RBC % Not Reportable 05/26/21 18:41 Seg Neutrophils # 5.9 K/mm3 (1.8-7.7) 05/29/21 04:17 Seg Neutrophils # Man 8.4 K/mm3 (1.8-7.7) H 05/26/21 18:41 Band Neutrophils # 0.0 K/mm3 05/26/21 18:41 Lymphocytes # (Manual) 0.3 K/mm3 (1.2-5.4) L 05/26/21 18:41 Abs React Lymphs (Man) 0.0 K/mm3 05/26/21 18:41 Monocytes # (Manual) 0.8 K/mm3 (0.0-0.8) 05/26/21 18:41 Eosinophils # (Manual) 0.1 K/mm3 (0.0-0.4) 05/26/21 18:41 Basophils # (Manual) 0.0 K/mm3 (0.0-0.1) 05/26/21 18:41 Metamyelocytes # 0.0 K/mm3 05/26/21 18:41 Myelocytes # 0.0 K/mm3 05/26/21 18:41 Promyelocytes # 0.0 K/mm3 05/26/21 18:41 Blast Cells # 0.0 K/mm3 05/26/21 18:41 WBC Morphology Not Reportable 05/26/21 18:41 Hypersegmented Neuts Not Reportable 05/26/21 18:41 Hyposegmented Neuts Not Reportable 05/26/21 18:41 Hypogranular Neuts Not Reportable 05/26/21 18:41 Smudge Cells Not Reportable 05/26/21 18:41 Toxic Granulation Not Reportable 05/26/21 18:41 Toxic Vacuolation Not Reportable 05/26/21 18:41 Dohle Bodies Not Reportable 05/26/21 18:41 Pelger-Huet Anomaly Not Reportable 05/26/21 18:41 Judy Rods Not Reportable 05/26/21 18:41 Platelet Estimate Consistent w auto 05/26/21 18:41 Clumped Platelets Not Reportable 05/26/21 18:41 Plt Clumps, EDTA Not Reportable 05/26/21 18:41 Large Platelets Not Reportable 05/26/21 18:41 Giant Platelets Not Reportable 05/26/21 18:41 Platelet Satelliting Not Reportable 05/26/21 18:41 Plt Morphology Comment Not Reportable 05/26/21 18:41 RBC Morphology Not Reportable 05/26/21 18:41 Dimorphic RBCs Not Reportable 05/26/21 18:41 Polychromasia Not Reportable 05/26/21 18:41 Hypochromasia Not Reportable 05/26/21 18:41 Poikilocytosis Not Reportable 05/26/21 18:41 Anisocytosis 1+ 05/26/21 18:41 Microcytosis Not Reportable 05/26/21 18:41 Macrocytosis Not Reportable 05/26/21 18:41 Spherocytes Not Reportable 05/26/21 18:41 Pappenheimer Bodies Not Reportable 05/26/21 18:41 Sickle Cells Not Reportable 05/26/21 18:41 Target Cells Not Reportable 05/26/21 18:41 Tear Drop Cells Not Reportable 05/26/21 18:41 Ovalocytes Not Reportable 05/26/21 18:41 Helmet Cells Not Reportable 05/26/21 18:41 [place] Bodies Not Reportable 05/26/21 18:41 [place] Rings Not Reportable 05/26/21 18:41 Becky Cells Not Reportable 05/26/21 18:41 Bite Cells Not Reportable 05/26/21 18:41 Crenated Cell Not Reportable 05/26/21 18:41 Elliptocytes Not Reportable 05/26/21 18:41 Acanthocytes (Spur) Not Reportable 05/26/21 18:41 Rouleaux Not Reportable 05/26/21 18:41 Hemoglobin C Crystals Not Reportable 05/26/21 18:41 Schistocytes Not Reportable 05/26/21 18:41 Malaria parasites Not Reportable 05/26/21 18:41 Dg Bodies Not Reportable 05/26/21 18:41 Hem Pathologist Commnt No 05/26/21 18:41 PT 13.4 Sec. (12.2-14.9) 05/28/21 20:31 INR 0.92 (0.87-1.13) 05/28/21 20:31 APTT 30.3 Sec. (24.2-36.6) 05/28/21 20:31 Sodium 144 mmol/L (137-145) D 05/30/21 05:08 Potassium 4.0 mmol/L (3.6-5.0) 05/30/21 05:08 Chloride 111.4 mmol/L (98-107) H 05/30/21 05:08 Carbon Dioxide 23 mmol/L (22-30) 05/30/21 05:08 Anion Gap 14 mmol/L 05/30/21 05:08 BUN 7 mg/dL (7-17) 05/30/21 05:08 Creatinine 0.8 mg/dL (0.6-1.2) 05/30/21 05:08 Estimated GFR > 60 ml/min 05/30/21 05:08 BUN/Creatinine Ratio 9 % 05/30/21 05:08 Glucose 97 mg/dL (65-100) 05/30/21 05:08 POC Glucose 130 mg/dL (70-105) H 05/27/21 11:30 Calcium 7.4 mg/dL (8.4-10.2) L 05/30/21 05:08 Blood Type O POSITIVE 05/26/21 18:48 Antibody Screen Negative 05/26/21 18:48 [place]/IV: Voiding Method External Female Catheter Active Medications - Current Medications Current Medications: Generic Name Dose Route Start Last Admin Trade Name Freq PRN Reason Stop Dose Admin Acetaminophen 650 mg 05/27/21 14:00 05/30/21 01:57 Acetaminophen 325 Mg Tab PO 650 mg Q6H DIANA Administration Albuterol 2.5 mg 05/29/21 16:28 Albuterol 2.5 Mg/3 Ml Nebu IH Q4HRT PRN Shortness Of Breath Albuterol 2.5 mg 05/29/21 18:00 05/29/21 21:06 Albuterol 2.5 Mg/3 Ml Nebu IH Not Given QID DAINA Apixaban 2.5 mg 05/29/21 22:00 05/29/21 21:43 Apixaban 2.5 Mg Tab PO 07/03/21 21:59 2.5 mg Q12HR DIANA Administration Protocol Baclofen 10 mg 05/29/21 16:30 Baclofen 10 Mg Tab PO BID PRN muscle pain Gabapentin 600 mg 05/29/21 18:00 05/30/21 06:00 Gabapentin 300 Mg Cap PO Not Given Q12H DIANA Hydromorphone HCl 2 mg 05/27/21 14:00 05/28/21 08:24 Hydromorphone 2 Mg/1 Ml Inj IV 2 mg Q3H PRN Administration Pain , Severe (7-10) Sodium Chloride 1,000 mls @ 75 mls/hr 05/26/21 20:00 05/29/21 20:27 Nacl 0.45% 1000 Ml IV 75 mls/hr DIRECT DIANA Administration Sodium Chloride 500 mls @ 0 mls/hr 05/30/21 07:38 Nacl 0.9% 500 Ml IV 05/31/21 07:37 ONCE NR As Directed Miscellaneous Medication 1 drop 05/29/21 16:30 Olopatadine Hcl [Pataday 0.2%] OU QDAY DIANA Mycophenolate Mofetil 1,000 mg 05/29/21 22:00 05/29/21 21:42 Mycophenolate 500 Mg Tab PO 1,000 mg BID DIANA Administration Naloxone HCl 0.1 mg 05/27/21 14:00 Naloxone 0.4 Mg/1 Ml Inj IV Q2MIN PRN Res Rate </= 8 or 02 SAT < 92% Nortriptyline HCl 10 mg 05/29/21 22:00 05/29/21 21:43 Nortriptyline 10 Mg Cap PO Not Given QHS DIANA Ondansetron HCl 4 mg 05/26/21 19:29 Ondansetron 4 Mg/2 Ml Inj IV Q8H PRN Nausea And Vomiting Oxycodone HCl 5 mg 05/27/21 14:00 05/30/21 01:58 Oxycodone 5 Mg Tab PO Not Given Q6H DIANA Polyethylene Glycol 17 gm 05/27/21 14:00 05/29/21 21:43 Polyethylene Glycol 3350 17 Gm Powder PO Not Given BID DIANA Senna 8.6 mg 05/27/21 14:00 05/29/21 09:13 Sennosides 8.6 Mg Tab PO 8.6 mg DAILY DIANA Administration Simethicone 80 mg 05/30/21 01:07 Simethicone 80 Mg Chew Tab PO Q6H PRN Gas pain Sodium Chloride 10 ml 05/26/21 22:00 05/29/21 21:45 Sodium Chloride 0.9% 10 Ml Flush Syringe IV 10 ml BID DIANA Administration Sodium Chloride 10 ml 05/26/21 19:29 Sodium Chloride 0.9% 10 Ml Flush Syringe IV PRN PRN LINE FLUSH
[2021-05-30] MEDS: MYCOPHENOLATE 500 MG TAB PO SCH ×2 (09:08→22:12)
[2021-05-30] MEDS: POLYETHYLENE GLYCOL 3350 17 GM POWDER PO SCH ×2 (09:08→22:12)
[2021-05-30] MEDS: SENNOSIDES 8.6 MG TAB PO SCH (09:08)
[2021-05-30] MEDS: APIXABAN 2.5 MG TAB PO SCH ×2 (09:08→22:12)
[2021-05-30 11:11] LABS: Iron 6 ug/dL (37-170); Total Iron Binding Capacity 140 mcg/dL (250-450)
[2021-05-30 14:38] LABS: Hematocrit 23.6 % (30.3-42.9); Hemoglobin 7.6 gm/dl (10.1-14.3)
[2021-05-30] MEDS: ALBUTEROL 2.5 MG/3 ML NEBU IH SCH ×2 (15:01→20:05)
--- NOTE | 2021-05-30 16:00 | Hem/Onc Consultation ---
History of Present Illness - Reason for Consult Consult date: 05/30/21 - History of Present Illness Heme prelim note--data review Patient has not been seen This is a 55yo female who presents s/p fall and left hip pain H/o fibromyalgia, neurologic sarcoidosis, peripheral neuropathy and right foot drop with frequent falls because of the right foot drop comes in for a fall followed by a left hip pain. H/o left ankle fracture few years ago and was put in a cast at that time. S/p day 2 of L bipolar hemiarthroplasty H/H decreased to 5.8/17.2--> s/p 1 unit RBC hgb 7.6 Hematology was consulted for evaluation of anemia Per notes, Patient reports history of hemorrhoids with upcoming colonoscopy outpatient No overt bleeding at this time iron studies suggestive of SHAHLA; iron supplementation prior to d/c DATA REVIEWED BELOW IMP: Anemia likely related to iron deficiency anemia iron testing reveals iron defic and "anemia of chronci disease" presumed to have bleeding, even though not seen PLAN: Labs to include LDH, retic, spep, hemoglobin electrophoresis, tre Ferrlicet 250mg x 2 doses Transfuse 1 unit RBC whenever Hct <23 Laboratory Last Values WBC 7.4 K/mm3 (4.5-11.0) 05/30/21 05:08 Hgb 7.6 gm/dl (10.1-14.3) L 05/30/21 14:20 Hct 23.6 % (30.3-42.9) L D 05/30/21 14:20 Plt Count 132 K/mm3 (140-440) L 05/30/21 05:08 Seg Neutrophils % 86.7 % (40.0-70.0) H 05/29/21 04:17 Seg Neuts % (Manual) 88.0 % (40.0-70.0) H 05/26/21 18:41 Band Neutrophils % 0 % 05/26/21 18:41 Lymphocytes % (Manual) 3.0 % (13.4-35.0) L 05/26/21 18:41 Reactive Lymphs % (Man) 0 % 05/26/21 18:41 Monocytes % (Manual) 8.0 % (0.0-7.3) H 05/26/21 18:41 Eosinophils % (Manual) 1.0 % (0.0-4.3) 05/26/21 18:41 Basophils % (Manual) 0 % (0.0-1.8) 05/26/21 18:41 Metamyelocytes % 0 % 05/26/21 18:41 Myelocytes % 0 % 05/26/21 18:41 Promyelocytes % 0 % 05/26/21 18:41 Blast Cells % 0 % 05/26/21 18:41 Nucleated RBC % Not Reportable 05/26/21 18:41 Seg Neutrophils # 5.9 K/mm3 (1.8-7.7) 05/29/21 04:17 Seg Neutrophils # Man 8.4 K/mm3 (1.8-7.7) H 05/26/21 18:41 Band Neutrophils # 0.0 K/mm3 05/26/21 18:41 Lymphocytes # (Manual) 0.3 K/mm3 (1.2-5.4) L 05/26/21 18:41 Abs React Lymphs (Man) 0.0 K/mm3 05/26/21 18:41 Monocytes # (Manual) 0.8 K/mm3 (0.0-0.8) 05/26/21 18:41 Eosinophils # (Manual) 0.1 K/mm3 (0.0-0.4) 05/26/21 18:41 Basophils # (Manual) 0.0 K/mm3 (0.0-0.1) 05/26/21 18:41 Metamyelocytes # 0.0 K/mm3 05/26/21 18:41 Myelocytes # 0.0 K/mm3 05/26/21 18:41 Promyelocytes # 0.0 K/mm3 05/26/21 18:41 Blast Cells # 0.0 K/mm3 05/26/21 18:41 WBC Morphology Not Reportable 05/26/21 18:41 Hypersegmented Neuts Not Reportable 05/26/21 18:41 Hyposegmented Neuts Not Reportable 05/26/21 18:41 Hypogranular Neuts Not Reportable 05/26/21 18:41 Smudge Cells Not Reportable 05/26/21 18:41 Toxic Granulation Not Reportable 05/26/21 18:41 Toxic Vacuolation Not Reportable 05/26/21 18:41 Dohle Bodies Not Reportable 05/26/21 18:41 Pelger-Huet Anomaly Not Reportable 05/26/21 18:41 Judy Rods Not Reportable 05/26/21 18:41 Platelet Estimate Consistent w auto 05/26/21 18:41 Clumped Platelets Not Reportable 05/26/21 18:41 Plt Clumps, EDTA Not Reportable 05/26/21 18:41 Large Platelets Not Reportable 05/26/21 18:41 Giant Platelets Not Reportable 05/26/21 18:41 Platelet Satelliting Not Reportable 05/26/21 18:41 Plt Morphology Comment Not Reportable 05/26/21 18:41 RBC Morphology Not Reportable 05/26/21 18:41 Dimorphic RBCs Not Reportable 05/26/21 18:41 Polychromasia Not Reportable 05/26/21 18:41 Hypochromasia Not Reportable 05/26/21 18:41 Poikilocytosis Not Reportable 05/26/21 18:41 Anisocytosis 1+ 05/26/21 18:41 Microcytosis Not Reportable 05/26/21 18:41 Macrocytosis Not Reportable 05/26/21 18:41 Spherocytes Not Reportable 05/26/21 18:41 Pappenheimer Bodies Not Reportable 05/26/21 18:41 Sickle Cells Not Reportable 05/26/21 18:41 Target Cells Not Reportable 05/26/21 18:41 Tear Drop Cells Not Reportable 05/26/21 18:41 Ovalocytes Not Reportable 05/26/21 18:41 Helmet Cells Not Reportable 05/26/21 18:41 [place] Bodies Not Reportable 05/26/21 18:41 [place] Rings Not Reportable 05/26/21 18:41 Becky Cells Not Reportable 05/26/21 18:41 Bite Cells Not Reportable 05/26/21 18:41 Crenated Cell Not Reportable 05/26/21 18:41 Elliptocytes Not Reportable 05/26/21 18:41 Acanthocytes (Spur) Not Reportable 05/26/21 18:41 Rouleaux Not Reportable 05/26/21 18:41 Hemoglobin C Crystals Not Reportable 05/26/21 18:41 Schistocytes Not Reportable 05/26/21 18:41 Malaria parasites Not Reportable 05/26/21 18:41 Dg Bodies Not Reportable 05/26/21 18:41 Hem Pathologist Commnt No 05/26/21 18:41 PT 13.4 Sec. (12.2-14.9) 05/28/21 20:31 INR 0.92 (0.87-1.13) 05/28/21 20:31 APTT 30.3 Sec. (24.2-36.6) 05/28/21 20:31 Sodium 144 mmol/L (137-145) D 05/30/21 05:08 Potassium 4.0 mmol/L (3.6-5.0) 05/30/21 05:08 Chloride 111.4 mmol/L (98-107) H 05/30/21 05:08 Carbon Dioxide 23 mmol/L (22-30) 05/30/21 05:08 Anion Gap 14 mmol/L 05/30/21 05:08 BUN 7 mg/dL (7-17) 05/30/21 05:08 Creatinine 0.8 mg/dL (0.6-1.2) 05/30/21 05:08 Estimated GFR > 60 ml/min 05/30/21 05:08 BUN/Creatinine Ratio 9 % 05/30/21 05:08 Glucose 97 mg/dL (65-100) 05/30/21 05:08 POC Glucose 130 mg/dL (70-105) H 05/27/21 11:30 Calcium 7.4 mg/dL (8.4-10.2) L 05/30/21 05:08 Iron 6 ug/dL (37-170) L 05/30/21 10:04 TIBC 140 mcg/dL (250-450) L 05/30/21 10:04 Ferritin 169.9 ng/mL (10.0-200.0) 05/30/21 10:04 Blood Type O POSITIVE 05/30/21 10:04 Antibody Screen Negative 05/30/21 10:04 Crossmatch See Detail 05/30/21 10:04 Medications and Allergies Allergies Allergy/AdvReac Type Severity Reaction Status Date / Time erythromycin base Allergy Hives Verified 05/29/21 14:24 methotrexate Allergy Rash, lost Verified 05/29/21 14:24 hair, skin got really dry Penicillins Allergy Rash Verified 05/28/21 12:02 Home Medications Medication Instructions Recorded Confirmed Last Taken Type Albuterol Mdi (or & Nicu Only) 2 puff IH QID PRN 05/29/21 05/29/21 Unknown History [ProAir HFA Inhaler] Baclofen [Lioresal] 10 mg PO BID PRN 05/29/21 05/29/21 Unknown History Gabapentin [Neurontin] 600 mg PO Q12H 05/29/21 05/29/21 Unknown History HYDROcodone/APAP 10-325 [[place] 1 each PO QID PRN 05/29/21 05/29/21 Unknown History 10/325] Hydrocortisone 1% [Hydrocortisone 1 applicatio TP QDAY PRN 05/29/21 05/29/21 Unknown History 1% CREAM] Ibuprofen [Motrin] 800 mg PO QDAY PRN 05/29/21 05/29/21 Unknown History Lactulose 20 gm PO QDAY PRN 05/29/21 05/29/21 Unknown History Mycophenolate [Cellcept] 1,000 mg PO BID 05/29/21 05/29/21 05/25/21 History Naloxone HCl [Narcan Nasal [place]] 4 mg NS PRN PRN 05/29/21 05/29/21 Unknown History Nortriptyline [Pamelor] 10 - 20 mg PO QHS 05/29/21 05/29/21 Unknown History Olopatadine HCl [Pataday 0.2%] 1 drop OU QDAY 05/29/21 05/29/21 Unknown History Triamcinolone 1 applic TP PRN PRN 05/29/21 05/29/21 Unknown History Valacyclovir HCl [Valacyclovir] 500 mg PO QDAY 05/29/21 05/29/21 Unknown History busPIRone [Buspar] 10 mg PO TID PRN 05/29/21 05/29/21 Unknown History Active Meds: Active Medications Acetaminophen (Acetaminophen 325 Mg Tab) 650 mg PO Q6H [facility] Last Admin: 05/30/21 13:48 Dose: 650 mg Albuterol (Albuterol 2.5 Mg/3 Ml Nebu) 2.5 mg IH Q4HRT PRN PRN Reason: Shortness Of Breath Albuterol (Albuterol 2.5 Mg/3 Ml Nebu) 2.5 mg IH QID [facility] Last Admin: 05/30/21 15:01 Dose: 2.5 mg Apixaban (Apixaban 2.5 Mg Tab) 2.5 mg PO Q12HR DIANA; Protocol Stop: 07/03/21 21:59 Last Admin: 05/30/21 09:08 Dose: 2.5 mg Baclofen (Baclofen 10 Mg Tab) 10 mg PO BID PRN PRN Reason: muscle pain Gabapentin (Gabapentin 300 Mg Cap) 600 mg PO Q12H [facility] Last Admin: 05/30/21 06:00 Dose: Not Given Hydromorphone HCl (Hydromorphone 2 Mg/1 Ml Inj) 2 mg IV Q3H PRN PRN Reason: Pain , Severe (7-10) Last Admin: 05/28/21 08:24 Dose: 2 mg Sodium Chloride (Nacl 0.45% 1000 Ml) 1,000 mls @ 75 mls/hr IV DIRECT [facility] Last Admin: 05/29/21 20:27 Dose: 75 mls/hr Sodium Chloride (Nacl 0.9% 500 Ml) 500 mls @ 0 mls/hr IV ONCE NR Stop: 05/31/21 07:37 Miscellaneous Medication (Olopatadine Hcl [Pataday 0.2%]) 1 drop OU QDAY [facility] Mycophenolate Mofetil (Mycophenolate 500 Mg Tab) 1,000 mg PO BID [facility] Last Admin: 05/30/21 09:08 Dose: 1,000 mg Naloxone HCl (Naloxone 0.4 Mg/1 Ml Inj) 0.1 mg IV Q2MIN PRN PRN Reason: Res Rate </= 8 or 02 SAT < 92% Nortriptyline HCl (Nortriptyline 10 Mg Cap) 10 mg PO QHS [facility] Last Admin: 05/29/21 21:43 Dose: Not Given Ondansetron HCl (Ondansetron 4 Mg/2 Ml Inj) 4 mg IV Q8H PRN PRN Reason: Nausea And Vomiting Oxycodone HCl (Oxycodone 5 Mg Tab) 5 mg PO Q6H [facility] Last Admin: 05/30/21 13:48 Dose: 5 mg Polyethylene Glycol (Polyethylene Glycol 3350 17 Gm Powder) 17 gm PO BID [facility] Last Admin: 05/30/21 09:08 Dose: 17 gm Senna (Sennosides 8.6 Mg Tab) 8.6 mg PO DAILY [facility] Last Admin: 05/30/21 09:08 Dose: 8.6 mg Simethicone (Simethicone 80 Mg Chew Tab) 80 mg PO Q6H PRN PRN Reason: Gas pain Sodium Chloride (Sodium Chloride 0.9% 10 Ml Flush Syringe) 10 ml IV BID DIANA Last Admin: 05/29/21 21:45 Dose: 10 ml Sodium Chloride (Sodium Chloride 0.9% 10 Ml Flush Syringe) 10 ml IV PRN PRN PRN Reason: LINE FLUSH Exam - Constitutional Vitals: Last Vital Signs Temp 98.7 F 05/30/21 14:46 Pulse 83 05/30/21 15:02 Resp 19 05/30/21 15:02 BP 91/75 05/30/21 14:46 Pulse Ox 98 05/30/21 14:16 Results - Labs lab Results: Laboratory Results - last 24 hr 05/30/21 05/30/21 05/30/21 05:08 05:08 10:04 WBC 7.4 RBC 2.03 L Hgb 5.8 L* Hct 17.2 L* MCV 85 MCH 29 MCHC 34 RDW 13.7 Plt Count 132 L Sodium 144 D Potassium 4.0 Chloride 111.4 H Carbon Dioxide 23 Anion Gap 14 BUN 7 Creatinine 0.8 Estimated GFR > 60 BUN/Creatinine Ratio 9 Glucose 97 Calcium 7.4 L Iron TIBC Ferritin Blood Type O POSITIVE Antibody Screen Negative Crossmatch See Detail 05/30/21 05/30/21 05/30/21 10:04 10:04 14:20 WBC RBC Hgb 7.6 L Hct 23.6 L D MCV MCH MCHC RDW Plt Count Sodium Potassium Chloride Carbon Dioxide Anion Gap BUN Creatinine Estimated GFR BUN/Creatinine Ratio Glucose Calcium Iron 6 L TIBC 140 L Ferritin 169.9 Blood Type Antibody Screen Crossmatch
[2021-05-30] MEDS: SODIUM CHLORIDE 0.45% 1000 ML 1,000 ML IV SCH (17:57)
[2021-05-30] MEDS: NORTRIPTYLINE 10 MG CAP PO SCH (22:12)
[2021-05-30] MEDS ORDERED: SODIUM FERRIC GLUCON/SUCRO 125 MG in SODIUM CHLORIDE 0.9% 100 ML IV ONE (23:26)
[2021-05-31] MEDS: oxyCODONE 5 MG TAB PO SCH ×4 (03:37→20:16)
[2021-05-31] MEDS: ACETAMINOPHEN 325 MG TAB PO SCH ×4 (05:55→20:15)
[2021-05-31] MEDS: GABAPENTIN 300 MG CAP PO SCH ×2 (05:56→17:36)
[2021-05-31] MEDS: SODIUM CHLORIDE 0.45% 1000 ML 1,000 ML IV SCH (06:08)
[2021-05-31 06:39] LABS: Hemoglobin 8.3 gm/dl (10.1-14.3); Mean Corpuscular HGB Conc 32 % (30-34); Mean Corpuscular Volume 87 fl (79-97); Platelet Count 169 K/mm3 (140-440); Red Blood Count 3.01 M/mm3 (3.65-5.03); Red Cell Distribution Width 14.3 % (13.2-15.2)
[2021-05-31 07:01] LABS: BUN/Creatinine Ratio 6; Blood Urea Nitrogen 5 mg/dL (7-17); Calcium 8.3 mg/dL (8.4-10.2); Hemolysis Index 7
[2021-05-31] MEDS: APIXABAN 2.5 MG TAB PO SCH ×2 (10:40→23:57)
[2021-05-31] MEDS: POLYETHYLENE GLYCOL 3350 17 GM POWDER PO SCH ×2 (10:40→23:58)
[2021-05-31] MEDS: SENNOSIDES 8.6 MG TAB PO SCH (10:40)
[2021-05-31] MEDS: MYCOPHENOLATE 500 MG TAB PO SCH ×3 (10:40→23:57)
--- NOTE | 2021-05-31 13:59 | Progress Note ---
Assessment and Plan Assessment and plan: #Moderately displaced subcapital left femoral fracture #POD#3 s/p L bipolar hemiarthroplasty Continue as needed analgesics and DVT prophylaxis PT consulted recommending SNF placement, patient in agreement #Iron deficiency anemia -Patient reports history of hemorrhoids with upcoming colonoscopy outpatient -Hemoglobin improved to 8.3 after 1 unit, possibly dilutional given IVFs were running -No overt bleeding at this time -Transfuse for hemoglobin less than 7 -iron studies suggestive of SHAHLA; iron supplementation prior to d/c -given ferrlicet x 2 -Hematology/Oncology consulted for further recommendations #Fibromyalgia Currently taking mycophenolate, will decrease dosage to 500mg BID per patient request #Peripheral neuropathy Continue home gabapentin 300 mg every 8 hours #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 Patient reports feeling much better. Denies dizizness, lightheadedness, shortness of breath and palpitations. Hospitalist Physical - Physical exam Narrative exam: GENERAL: Well-developed well-nourished. In no acute distress up in chair. HEENT: Normocephalic. Atraumatic. CHEST/LUNGS: CTAB on room air HEART/CARDIOVASCULAR: RRR. No murmur, rubs or gallops appreciated. ABDOMEN: +BS. NT/ND. SKIN: No rashes noted. NEURO: No focal motor deficit. Follows all commands. MUSCULOSKELETAL: No joint effusion EXTREMITIES: L hip bandage in place, c/d/i. R foot drop. PSYCH: Cooperative. - Constitutional Vitals: Temp Pulse Resp BP Pulse Ox 98.2 F 67 18 114/65 98 05/31/21 11:50 05/31/21 11:50 05/31/21 11:50 05/31/21 11:50 05/31/21 11:50 General appearance: Present: no acute distress, well-nourished Results - Labs CBC & Chem 7: 05/31/21 06:05 05/31/21 06:05 Labs: Laboratory Last Values WBC 8.2 K/mm3 (4.5-11.0) 05/31/21 06:05 RBC 3.01 M/mm3 (3.65-5.03) L 05/31/21 06:05 Hgb 8.3 gm/dl (10.1-14.3) L 05/31/21 06:05 Hct 26.0 % (30.3-42.9) L 05/31/21 06:05 MCV 87 fl (79-97) 05/31/21 06:05 MCH 28 pg (28-32) 05/31/21 06:05 MCHC 32 % (30-34) 05/31/21 06:05 RDW 14.3 % (13.2-15.2) 05/31/21 06:05 Plt Count 169 K/mm3 (140-440) 05/31/21 06:05 Lymph % (Auto) 4.8 % (13.4-35.0) L 05/29/21 04:17 [place] % (Auto) 6.4 % (0.0-7.3) 05/29/21 04:17 Eos % (Auto) 1.8 % (0.0-4.3) 05/29/21 04:17 Baso % (Auto) 0.3 % (0.0-1.8) 05/29/21 04:17 Lymph # (Auto) 0.3 K/mm3 (1.2-5.4) L 05/29/21 04:17 [place] # (Auto) 0.4 K/mm3 (0.0-0.8) 05/29/21 04:17 Eos # (Auto) 0.1 K/mm3 (0.0-0.4) 05/29/21 04:17 Baso # (Auto) 0.0 K/mm3 (0.0-0.1) 05/29/21 04:17 Add Manual Diff Complete 05/26/21 18:41 Total Counted 100 05/26/21 18:41 Seg Neutrophils % 86.7 % (40.0-70.0) H 05/29/21 04:17 Seg Neuts % (Manual) 88.0 % (40.0-70.0) H 05/26/21 18:41 Band Neutrophils % 0 % 05/26/21 18:41 Lymphocytes % (Manual) 3.0 % (13.4-35.0) L 05/26/21 18:41 Reactive Lymphs % (Man) 0 % 05/26/21 18:41 Monocytes % (Manual) 8.0 % (0.0-7.3) H 05/26/21 18:41 Eosinophils % (Manual) 1.0 % (0.0-4.3) 05/26/21 18:41 Basophils % (Manual) 0 % (0.0-1.8) 05/26/21 18:41 Metamyelocytes % 0 % 05/26/21 18:41 Myelocytes % 0 % 05/26/21 18:41 Promyelocytes % 0 % 05/26/21 18:41 Blast Cells % 0 % 05/26/21 18:41 Nucleated RBC % Not Reportable 05/26/21 18:41 Seg Neutrophils # 5.9 K/mm3 (1.8-7.7) 05/29/21 04:17 Seg Neutrophils # Man 8.4 K/mm3 (1.8-7.7) H 05/26/21 18:41 Band Neutrophils # 0.0 K/mm3 05/26/21 18:41 Lymphocytes # (Manual) 0.3 K/mm3 (1.2-5.4) L 05/26/21 18:41 Abs React Lymphs (Man) 0.0 K/mm3 05/26/21 18:41 Monocytes # (Manual) 0.8 K/mm3 (0.0-0.8) 05/26/21 18:41 Eosinophils # (Manual) 0.1 K/mm3 (0.0-0.4) 05/26/21 18:41 Basophils # (Manual) 0.0 K/mm3 (0.0-0.1) 05/26/21 18:41 Metamyelocytes # 0.0 K/mm3 05/26/21 18:41 Myelocytes # 0.0 K/mm3 05/26/21 18:41 Promyelocytes # 0.0 K/mm3 05/26/21 18:41 Blast Cells # 0.0 K/mm3 05/26/21 18:41 WBC Morphology Not Reportable 05/26/21 18:41 Hypersegmented Neuts Not Reportable 05/26/21 18:41 Hyposegmented Neuts Not Reportable 05/26/21 18:41 Hypogranular Neuts Not Reportable 05/26/21 18:41 Smudge Cells Not Reportable 05/26/21 18:41 Toxic Granulation Not Reportable 05/26/21 18:41 Toxic Vacuolation Not Reportable 05/26/21 18:41 Dohle Bodies Not Reportable 05/26/21 18:41 Pelger-Huet Anomaly Not Reportable 05/26/21 18:41 Judy Rods Not Reportable 05/26/21 18:41 Platelet Estimate Consistent w auto 05/26/21 18:41 Clumped Platelets Not Reportable 05/26/21 18:41 Plt Clumps, EDTA Not Reportable 05/26/21 18:41 Large Platelets Not Reportable 05/26/21 18:41 Giant Platelets Not Reportable 05/26/21 18:41 Platelet Satelliting Not Reportable 05/26/21 18:41 Plt Morphology Comment Not Reportable 05/26/21 18:41 RBC Morphology Not Reportable 05/26/21 18:41 Dimorphic RBCs Not Reportable 05/26/21 18:41 Polychromasia Not Reportable 05/26/21 18:41 Hypochromasia Not Reportable 05/26/21 18:41 Poikilocytosis Not Reportable 05/26/21 18:41 Anisocytosis 1+ 05/26/21 18:41 Microcytosis Not Reportable 05/26/21 18:41 Macrocytosis Not Reportable 05/26/21 18:41 Spherocytes Not Reportable 05/26/21 18:41 Pappenheimer Bodies Not Reportable 05/26/21 18:41 Sickle Cells Not Reportable 05/26/21 18:41 Target Cells Not Reportable 05/26/21 18:41 Tear Drop Cells Not Reportable 05/26/21 18:41 Ovalocytes Not Reportable 05/26/21 18:41 Helmet Cells Not Reportable 05/26/21 18:41 [place] Bodies Not Reportable 05/26/21 18:41 [place] Rings Not Reportable 05/26/21 18:41 [place] Cells Not Reportable 05/26/21 18:41 Bite Cells Not Reportable 05/26/21 18:41 Crenated Cell Not Reportable 05/26/21 18:41 Elliptocytes Not Reportable 05/26/21 18:41 Acanthocytes (Spur) Not Reportable 05/26/21 18:41 Rouleaux Not Reportable 05/26/21 18:41 Hemoglobin C Crystals Not Reportable 05/26/21 18:41 Schistocytes Not Reportable 05/26/21 18:41 Malaria parasites Not Reportable 05/26/21 18:41 Percent Retic 1.59 % (0.78-2.58) 05/31/21 06:05 Dg Bodies Not Reportable 05/26/21 18:41 Hem Pathologist Commnt No 05/26/21 18:41 PT 13.4 Sec. (12.2-14.9) 05/28/21 20:31 INR 0.92 (0.87-1.13) 05/28/21 20:31 APTT 30.3 Sec. (24.2-36.6) 05/28/21 20:31 Sodium 149 mmol/L (137-145) H 05/31/21 06:05 Potassium 3.5 mmol/L (3.6-5.0) L 05/31/21 06:05 Chloride 112.1 mmol/L (98-107) H 05/31/21 06:05 Carbon Dioxide 27 mmol/L (22-30) 05/31/21 06:05 Anion Gap 13 mmol/L 05/31/21 06:05 BUN 5 mg/dL (7-17) L 05/31/21 06:05 Creatinine 0.8 mg/dL (0.6-1.2) 05/31/21 06:05 Estimated GFR > 60 ml/min 05/31/21 06:05 BUN/Creatinine Ratio 6 % 05/31/21 06:05 Glucose 84 mg/dL (65-100) 05/31/21 06:05 POC Glucose 130 mg/dL (70-105) H 05/27/21 11:30 Calcium 8.3 mg/dL (8.4-10.2) L 05/31/21 06:05 Iron 6 ug/dL (37-170) L 05/30/21 10:04 TIBC 140 mcg/dL (250-450) L 05/30/21 10:04 Ferritin 169.9 ng/mL (10.0-200.0) 05/30/21 10:04 Lactate Dehydrogenase 200 units/L (91-180) H 05/31/21 06:05 Blood Type O POSITIVE 05/30/21 10:04 Antibody Screen Negative 05/30/21 10:04 Crossmatch See Detail 05/30/21 10:04 [place]/IV: Voiding Method Incontinent Active Medications - Current Medications Current Medications: Generic Name Dose Route Start Last Admin Trade Name Freq PRN Reason Stop Dose Admin Acetaminophen 650 mg 05/27/21 14:00 05/31/21 08:00 Acetaminophen 325 Mg Tab PO 650 mg Q6H DIANA Administration Albuterol 2.5 mg 05/29/21 16:28 Albuterol 2.5 Mg/3 Ml Nebu IH Q4HRT PRN Shortness Of Breath Apixaban 2.5 mg 05/29/21 22:00 05/31/21 10:40 Apixaban 2.5 Mg Tab PO 07/03/21 21:59 2.5 mg Q12HR DIANA Administration Protocol Baclofen 10 mg 05/29/21 16:30 Baclofen 10 Mg Tab PO BID PRN muscle pain Gabapentin 600 mg 05/29/21 18:00 05/31/21 05:56 Gabapentin 300 Mg Cap PO 600 mg Q12H DIANA Administration Hydromorphone HCl 2 mg 05/27/21 14:00 05/28/21 08:24 Hydromorphone 2 Mg/1 Ml Inj IV 2 mg Q3H PRN Administration Pain , Severe (7-10) Ferric Sodium Gluconate 110 mls @ 100 mls/hr 05/31/21 13:43 Complex 125 mg/ Sodium IV 05/31/21 14:48 Chloride ONCE ONE Miscellaneous Medication 1 drop 05/29/21 16:30 Olopatadine Hcl [Pataday 0.2%] OU QDAY DIANA Mycophenolate Mofetil 1,000 mg 05/29/21 22:00 05/31/21 10:40 Mycophenolate 500 Mg Tab PO 1,000 mg BID DIANA Administration Naloxone HCl 0.1 mg 05/27/21 14:00 Naloxone 0.4 Mg/1 Ml Inj IV Q2MIN PRN Res Rate </= 8 or 02 SAT < 92% Nortriptyline HCl 10 mg 05/29/21 22:00 05/30/21 22:12 Nortriptyline 10 Mg Cap PO 10 mg QHS DIANA Administration Ondansetron HCl 4 mg 05/26/21 19:29 Ondansetron 4 Mg/2 Ml Inj IV Q8H PRN Nausea And Vomiting Oxycodone HCl 5 mg 05/27/21 14:00 05/31/21 08:02 Oxycodone 5 Mg Tab PO Not Given Q6H DIANA Polyethylene Glycol 17 gm 05/27/21 14:00 05/31/21 10:40 Polyethylene Glycol 3350 17 Gm Powder PO 17 gm BID DIANA Administration Senna 8.6 mg 05/27/21 14:00 05/31/21 10:40 Sennosides 8.6 Mg Tab PO 8.6 mg DAILY DIANA Administration Simethicone 80 mg 05/30/21 01:07 Simethicone 80 Mg Chew Tab PO Q6H PRN Gas pain Sodium Chloride 10 ml 05/26/21 22:00 05/31/21 10:43 Sodium Chloride 0.9% 10 Ml Flush Syringe IV 10 ml BID DIANA Administration Sodium Chloride 10 ml 05/26/21 19:29 Sodium Chloride 0.9% 10 Ml Flush Syringe IV PRN PRN LINE FLUSH
--- NOTE | 2021-05-31 14:15 | Hem/Onc Consultation ---
History of Present Illness - Reason for Consult Consult date: 05/31/21 Anemia - History of Present Illness Heme consult note Televisit via [facility] CPT [id number] Dx anemia This is a 55yo female who presents s/p fall and left hip pain H/o fibromyalgia, neurologic sarcoidosis, peripheral neuropathy and right foot drop with frequent falls because of the right foot drop comes in for a fall followed by a left hip pain. H/o left ankle fracture few years ago and was put in a cast at that time. S/p day 3 of L bipolar hemiarthroplasty H/H decreased to 5.8/17.2--> s/p 1 unit RBC hgb 7.6 Hematology was consulted for evaluation of anemia Per notes, Patient reports history of hemorrhoids with upcoming colonoscopy outpatient Reports constipation and bleeding hemorrhoids Reports family history of colon cancer No overt bleeding at this time Menopausal x 5 years iron studies suggestive of SHAHLA; iron supplementation prior to d/c DATA REVIEWED BELOW h/h 5.8 -->7.6 --> 8.3 s/p 1 unit RBC IMP: Anemia likely related to iron deficiency anemia due to bleeding hemorrhoids iron testing reveals iron defic and "anemia of chronic disease" presumed to have bleeding, even though not seen PLAN: CBC in AM IV iron x 2 doses Recommend daily stool softener Transfuse 1 unit RBC whenever Hct <23 Laboratory Last Values WBC 8.2 K/mm3 (4.5-11.0) 05/31/21 06:05 RBC 3.01 M/mm3 (3.65-5.03) L 05/31/21 06:05 Hgb 8.3 gm/dl (10.1-14.3) L 05/31/21 06:05 Hct 26.0 % (30.3-42.9) L 05/31/21 06:05 MCV 87 fl (79-97) 05/31/21 06:05 MCH 28 pg (28-32) 05/31/21 06:05 MCHC 32 % (30-34) 05/31/21 06:05 RDW 14.3 % (13.2-15.2) 05/31/21 06:05 Plt Count 169 K/mm3 (140-440) 05/31/21 06:05 Lymph % (Auto) 4.8 % (13.4-35.0) L 05/29/21 04:17 [place] % (Auto) 6.4 % (0.0-7.3) 05/29/21 04:17 Eos % (Auto) 1.8 % (0.0-4.3) 05/29/21 04:17 Baso % (Auto) 0.3 % (0.0-1.8) 05/29/21 04:17 Lymph # (Auto) 0.3 K/mm3 (1.2-5.4) L 05/29/21 04:17 [place] # (Auto) 0.4 K/mm3 (0.0-0.8) 05/29/21 04:17 Eos # (Auto) 0.1 K/mm3 (0.0-0.4) 05/29/21 04:17 Baso # (Auto) 0.0 K/mm3 (0.0-0.1) 05/29/21 04:17 Add Manual Diff Complete 05/26/21 18:41 Total Counted 100 05/26/21 18:41 Seg Neutrophils % 86.7 % (40.0-70.0) H 05/29/21 04:17 Seg Neuts % (Manual) 88.0 % (40.0-70.0) H 05/26/21 18:41 Band Neutrophils % 0 % 05/26/21 18:41 Lymphocytes % (Manual) 3.0 % (13.4-35.0) L 05/26/21 18:41 Reactive Lymphs % (Man) 0 % 05/26/21 18:41 Monocytes % (Manual) 8.0 % (0.0-7.3) H 05/26/21 18:41 Eosinophils % (Manual) 1.0 % (0.0-4.3) 05/26/21 18:41 Basophils % (Manual) 0 % (0.0-1.8) 05/26/21 18:41 Metamyelocytes % 0 % 05/26/21 18:41 Myelocytes % 0 % 05/26/21 18:41 Promyelocytes % 0 % 05/26/21 18:41 Blast Cells % 0 % 05/26/21 18:41 Nucleated RBC % Not Reportable 05/26/21 18:41 Seg Neutrophils # 5.9 K/mm3 (1.8-7.7) 05/29/21 04:17 Seg Neutrophils # Man 8.4 K/mm3 (1.8-7.7) H 05/26/21 18:41 Band Neutrophils # 0.0 K/mm3 05/26/21 18:41 Lymphocytes # (Manual) 0.3 K/mm3 (1.2-5.4) L 05/26/21 18:41 Abs React Lymphs (Man) 0.0 K/mm3 05/26/21 18:41 Monocytes # (Manual) 0.8 K/mm3 (0.0-0.8) 05/26/21 18:41 Eosinophils # (Manual) 0.1 K/mm3 (0.0-0.4) 05/26/21 18:41 Basophils # (Manual) 0.0 K/mm3 (0.0-0.1) 05/26/21 18:41 Metamyelocytes # 0.0 K/mm3 05/26/21 18:41 Myelocytes # 0.0 K/mm3 05/26/21 18:41 Promyelocytes # 0.0 K/mm3 05/26/21 18:41 Blast Cells # 0.0 K/mm3 05/26/21 18:41 WBC Morphology Not Reportable 05/26/21 18:41 Hypersegmented Neuts Not Reportable 05/26/21 18:41 Hyposegmented Neuts Not Reportable 05/26/21 18:41 Hypogranular Neuts Not Reportable 05/26/21 18:41 Smudge Cells Not Reportable 05/26/21 18:41 Toxic Granulation Not Reportable 05/26/21 18:41 Toxic Vacuolation Not Reportable 05/26/21 18:41 Dohle Bodies Not Reportable 05/26/21 18:41 Pelger-[place]uet Anomaly Not Reportable 05/26/21 18:41 Judy Rods Not Reportable 05/26/21 18:41 Platelet Estimate Consistent w auto 05/26/21 18:41 Clumped Platelets Not Reportable 05/26/21 18:41 Plt Clumps, EDTA Not Reportable 05/26/21 18:41 Large Platelets Not Reportable 05/26/21 18:41 Giant Platelets Not Reportable 05/26/21 18:41 Platelet Satelliting Not Reportable 05/26/21 18:41 Plt Morphology Comment Not Reportable 05/26/21 18:41 RBC Morphology Not Reportable 05/26/21 18:41 Dimorphic RBCs Not Reportable 05/26/21 18:41 Polychromasia Not Reportable 05/26/21 18:41 Hypochromasia Not Reportable 05/26/21 18:41 Poikilocytosis Not Reportable 05/26/21 18:41 Anisocytosis 1+ 05/26/21 18:41 Microcytosis Not Reportable 05/26/21 18:41 Macrocytosis Not Reportable 05/26/21 18:41 Spherocytes Not Reportable 05/26/21 18:41 Pappenheimer Bodies Not Reportable 05/26/21 18:41 Sickle Cells Not Reportable 05/26/21 18:41 Target Cells Not Reportable 05/26/21 18:41 Tear Drop Cells Not Reportable 05/26/21 18:41 Ovalocytes Not Reportable 05/26/21 18:41 Helmet Cells Not Reportable 05/26/21 18:41 [place] Bodies Not Reportable 05/26/21 18:41 [place] Rings Not Reportable 05/26/21 18:41 [place] Cells Not Reportable 05/26/21 18:41 Bite Cells Not Reportable 05/26/21 18:41 Crenated Cell Not Reportable 05/26/21 18:41 Elliptocytes Not Reportable 05/26/21 18:41 Acanthocytes (Spur) Not Reportable 05/26/21 18:41 Rouleaux Not Reportable 05/26/21 18:41 Hemoglobin C Crystals Not Reportable 05/26/21 18:41 Schistocytes Not Reportable 05/26/21 18:41 Malaria parasites Not Reportable 05/26/21 18:41 Percent Retic 1.59 % (0.78-2.58) 05/31/21 06:05 Dg Bodies Not Reportable 05/26/21 18:41 Hem Pathologist Commnt No 05/26/21 18:41 PT 13.4 Sec. (12.2-14.9) 05/28/21 20:31 INR 0.92 (0.87-1.13) 05/28/21 20:31 APTT 30.3 Sec. (24.2-36.6) 05/28/21 20:31 Sodium 149 mmol/L (137-145) H 05/31/21 06:05 Potassium 3.5 mmol/L (3.6-5.0) L 05/31/21 06:05 Chloride 112.1 mmol/L (98-107) H 05/31/21 06:05 Carbon Dioxide 27 mmol/L (22-30) 05/31/21 06:05 Anion Gap 13 mmol/L 05/31/21 06:05 BUN 5 mg/dL (7-17) L 05/31/21 06:05 Creatinine 0.8 mg/dL (0.6-1.2) 05/31/21 06:05 Estimated GFR > 60 ml/min 05/31/21 06:05 BUN/Creatinine Ratio 6 % 05/31/21 06:05 Glucose 84 mg/dL (65-100) 05/31/21 06:05 POC Glucose 130 mg/dL (70-105) H 05/27/21 11:30 Calcium 8.3 mg/dL (8.4-10.2) L 05/31/21 06:05 Iron 6 ug/dL (37-170) L 05/30/21 10:04 TIBC 140 mcg/dL (250-450) L 05/30/21 10:04 Ferritin 169.9 ng/mL (10.0-200.0) 05/30/21 10:04 Lactate Dehydrogenase 200 units/L (91-180) H 05/31/21 06:05 Blood Type O POSITIVE 05/30/21 10:04 Antibody Screen Negative 05/30/21 10:04 Crossmatch See Detail 05/30/21 10:04 Medications and Allergies Allergies Allergy/AdvReac Type Severity Reaction Status Date / Time erythromycin base Allergy Hives Verified 05/29/21 14:24 methotrexate Allergy Rash, lost Verified 05/29/21 14:24 hair, skin got really dry Penicillins Allergy Rash Verified 05/28/21 12:02 Home Medications Medication Instructions Recorded Confirmed Last Taken Type Albuterol Mdi (or & Nicu Only) 2 puff IH QID PRN 05/29/21 05/29/21 Unknown History [ProAir HFA Inhaler] Baclofen [Lioresal] 10 mg PO BID PRN 05/29/21 05/29/21 Unknown History Gabapentin [Neurontin] 600 mg PO Q12H 05/29/21 05/29/21 Unknown History HYDROcodone/APAP 10-325 [[place] 1 each PO QID PRN 05/29/21 05/29/21 Unknown Histo ry 10/325] Hydrocortisone 1% [Hydrocortisone 1 applicatio TP QDAY PRN 05/29/21 05/29/21 Unknown History 1% CREAM] Ibuprofen [Motrin] 800 mg PO QDAY PRN 05/29/21 05/29/21 Unknown History Lactulose 20 gm PO QDAY PRN 05/29/21 05/29/21 Unknown History Mycophenolate [Cellcept] 1,000 mg PO BID 05/29/21 05/29/21 05/25/21 History Naloxone HCl [Narcan Nasal [place]] 4 mg NS PRN PRN 05/29/21 05/29/21 Unknown History Nortriptyline [Pamelor] 10 - 20 mg PO QHS 05/29/21 05/29/21 Unknown History Olopatadine HCl [Pataday 0.2%] 1 drop OU QDAY 05/29/21 05/29/21 Unknown History Triamcinolone 1 applic TP PRN PRN 05/29/21 05/29/21 Unknown History Valacyclovir HCl [Valacyclovir] 500 mg PO QDAY 05/29/21 05/29/21 Unknown History busPIRone [Buspar] 10 mg PO TID PRN 05/29/21 05/29/21 Unknown History Active Meds: Active Medications Acetaminophen (Acetaminophen 325 Mg Tab) 650 mg PO Q6H [facility] Last Admin: 05/31/21 08:00 Dose: 650 mg Albuterol (Albuterol 2.5 Mg/3 Ml Nebu) 2.5 mg IH Q4HRT PRN PRN Reason: Shortness Of Breath Apixaban (Apixaban 2.5 Mg Tab) 2.5 mg PO Q12HR DIANA; Protocol Stop: 07/03/21 21:59 Last Admin: 05/31/21 10:40 Dose: 2.5 mg Baclofen (Baclofen 10 Mg Tab) 10 mg PO BID PRN PRN Reason: muscle pain Gabapentin (Gabapentin 300 Mg Cap) 600 mg PO Q12H DIANA Last Admin: 05/31/21 05:56 Dose: 600 mg Hydromorphone HCl (Hydromorphone 2 Mg/1 Ml Inj) 2 mg IV Q3H PRN PRN Reason: Pain , Severe (7-10) Last Admin: 05/28/21 08:24 Dose: 2 mg Ferric Sodium Gluconate Complex 125 mg/ Sodium Chloride 110 mls @ 100 mls/hr IV ONCE ONE Stop: 05/31/21 14:48 Miscellaneous Medication (Olopatadine Hcl [Pataday 0.2%]) 1 drop OU QDAY [facility] Mycophenolate Mofetil (Mycophenolate 500 Mg Tab) 500 mg PO BID [facility] Naloxone HCl (Naloxone 0.4 Mg/1 Ml Inj) 0.1 mg IV Q2MIN PRN PRN Reason: Res Rate </= 8 or 02 SAT < 92% Nortriptyline HCl (Nortriptyline 10 Mg Cap) 10 mg PO QHS [facility] Last Admin: 05/30/21 22:12 Dose: 10 mg Ondansetron HCl (Ondansetron 4 Mg/2 Ml Inj) 4 mg IV Q8H PRN PRN Reason: Nausea And Vomiting Oxycodone HCl (Oxycodone 5 Mg Tab) 5 mg PO Q6H [facility] Last Admin: 05/31/21 08:02 Dose: Not Given Polyethylene Glycol (Polyethylene Glycol 3350 17 Gm Powder) 17 gm PO BID [facility] Last Admin: 05/31/21 10:40 Dose: 17 gm Senna (Sennosides 8.6 Mg Tab) 8.6 mg PO DAILY [facility] Last Admin: 05/31/21 10:40 Dose: 8.6 mg Simethicone (Simethicone 80 Mg Chew Tab) 80 mg PO Q6H PRN PRN Reason: Gas pain Sodium Chloride (Sodium Chloride 0.9% 10 Ml Flush Syringe) 10 ml IV BID [facility] Last Admin: 05/31/21 10:43 Dose: 10 ml Sodium Chloride (Sodium Chloride 0.9% 10 Ml Flush Syringe) 10 ml IV PRN PRN PRN Reason: LINE FLUSH Exam - Constitutional Vitals: Last Vital Signs Temp 98.2 F 05/31/21 11:50 Pulse 67 05/31/21 11:50 Resp 18 05/31/21 11:50 BP 114/65 05/31/21 11:50 Pulse Ox 98 05/31/21 11:50 Results - Labs lab Results: Laboratory Results - last 24 hr 05/30/21 05/30/21 05/31/21 10:04 14:20 06:05 WBC 8.2 RBC 3.01 L Hgb 7.6 L 8.3 L Hct 23.6 L D 26.0 L MCV 87 MCH 28 MCHC 32 RDW 14.3 Plt Count 169 Percent Retic 1.59 Sodium Potassium Chloride Carbon Dioxide Anion Gap BUN Creatinine Estimated GFR BUN/Creatinine Ratio Glucose Calcium Lactate Dehydrogenase Crossmatch See Detail 05/31/21 06:05 WBC RBC Hgb Hct MCV MCH MCHC RDW Plt Count Percent Retic Sodium 149 H Potassium 3.5 L Chloride 112.1 H Carbon Dioxide 27 Anion Gap 13 BUN 5 L Creatinine 0.8 Estimated GFR > 60 BUN/Creatinine Ratio 6 Glucose 84 Calcium 8.3 L Lactate Dehydrogenase 200 H Crossmatch
[2021-05-31] MEDS ORDERED: SODIUM FERRIC GLUCON/SUCRO 125 MG in SODIUM CHLORIDE 0.9% 100 ML IV ONE (14:43)
[2021-05-31] MEDS: NORTRIPTYLINE 10 MG CAP PO SCH (23:58)
[2021-06-01] MEDS: oxyCODONE 5 MG TAB PO SCH ×3 (02:00→14:00)
[2021-06-01] MEDS: ACETAMINOPHEN 325 MG TAB PO SCH ×3 (02:00→15:11)
[2021-06-01] MEDS: GABAPENTIN 300 MG CAP PO SCH ×2 (05:40→19:57)
[2021-06-01 05:54] LABS: Basophils % (Auto) 0.5 % (0.0-1.8); Eosinophils # (Auto) 0.5 K/mm3 (0.0-0.4); Eosinophils % (Auto) 5.8 % (0.0-4.3); Hematocrit 26.3 % (30.3-42.9); Hemoglobin 8.7 gm/dl (10.1-14.3); Lymphocytes # (Auto) 0.8 K/mm3 (1.2-5.4); Lymphocytes % (Auto) 9.9 % (13.4-35.0); Mean Corpuscular HGB Conc 33 % (30-34); Mean Corpuscular Volume 86 fl (79-97); Monocytes # (Auto) 0.7 K/mm3 (0.0-0.8); Monocytes % (Auto) 8.2 % (0.0-7.3); Platelet Count 227 K/mm3 (140-440); Red Blood Count 3.04 M/mm3 (3.65-5.03); Red Cell Distribution Width 14.4 % (13.2-15.2)
[2021-06-01] MEDS: POLYETHYLENE GLYCOL 3350 17 GM POWDER PO SCH (09:00)
[2021-06-01] MEDS: SENNOSIDES 8.6 MG TAB PO SCH (09:01)
[2021-06-01] MEDS: APIXABAN 2.5 MG TAB PO SCH (09:02)
[2021-06-01] MEDS: MYCOPHENOLATE 500 MG TAB PO SCH (09:05)
--- NOTE | 2021-06-01 13:01 | Discharge Summary ---
Providers - Providers Date of Admission: 05/26/21 19:29 Attending physician: SAMIR MELENDEZ MD 05/27/21 08:02 Consult to Physician [CONS] Routine Comment: Consulting Provider: NAHUN LOZOYA Physician Instructions: Reason For Exam: L displaced subcapital femoral fx 05/27/21 09:15 Physical Therapy Evaluation and Treat [CONS] Routine Comment: Reason For Exam: L femoral fracture 05/30/21 11:44 Consult to Physician [CONS] Routine Comment: Consulting Provider: TAD HERNÁNDEZ Physician Instructions: Reason For Exam: anemia and mycophenolate 06/01/21 11:51 Consult to Case Management [CONS] Routine Services Needed at Discharge: Physical Therapy Primary care physician: QUETA SLOAN Hospitalization Condition: Stable Disposition: 30 STILL A PATIENT Exam - Constitutional Vitals: Temp Pulse Resp BP Pulse Ox 98.8 F 91 H 16 123/78 97 06/01/21 10:46 06/01/21 10:46 06/01/21 10:46 06/01/21 10:46 06/01/21 10:46 Plan Care Plan Goals: 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 You begin taking iron supplementation daily for your low iron levels. Make sure you are taking stool softener as you take his medication. Please start taking apixaban as prescribed to prevent postoperative blood clot in your leg. Please follow-up with Dr. Lozoya within 1 to 2 weeks. You will start receiving physical therapy at home. You are always welcome to participate in outpatient physical therapy here at [facility]. Follow up with: QUETA SLOAN MD [Primary Care Provider] - 7 Days NAHUN LOZOYA MD [Staff Physician] - 14 Days Prescriptions: Mycophenolate [Cellcept] 500 mg PO BID 30 Days #60 tablet Apixaban [Eliquis] 2.5 mg PO Q12HR 26 Days #32 tablet Ferrous Sulfate [Ferrous Sulfate 324 MG] 324 mg PO DAILY 30 Days #30 tab Sennosides Tab [Senokot] 8.6 mg PO DAILY 30 Days #30 tablet
[2021-06-01 17:43] VITALS: BP 113/86
== END 2021-06-01 20:40 | disposition home health service (06) | DRG 522 ==
LOC: ED 14:46 → 3A 19:29
PROVIDERS: ADMIT Internal Medicine; ATTEND Student in an Organized Health Care Education/Training Program
PROC: 0SRS0JA Replacement of Left Hip Joint, Femoral Surface with Synthetic Substitute, Uncemented, Open Approach (ICD-10-PCS; principal; 2021-05-28)
PROC: 30233N1 Transfusion of Nonautologous Red Blood Cells into Peripheral Vein, Percutaneous Approach (ICD-10-PCS; 2021-05-30)
DX: S72.012A Unspecified intracapsular fracture of left femur, initial encounter for closed fracture (principal); D86.9 Sarcoidosis, unspecified; D50.8 Other iron deficiency anemias; W18.39XA Other fall on same level, initial encounter; Y93.89 Activity, other specified; Y92.89 Other specified places as the place of occurrence of the external cause; Y99.8 Other external cause status; M79.7 Fibromyalgia; Z87.891 Personal history of nicotine dependence; G62.9 Polyneuropathy, unspecified; J45.909 Unspecified asthma, uncomplicated; E87.6 Hypokalemia; K64.9 Unspecified hemorrhoids; Z88.0 Allergy status to penicillin; Z88.8 Allergy status to other drugs, medicaments and biological substances
CPT/HCPCS: 36415; 80048; 82565; 82728; 82962; 83550; 83615; 85007; 85014; 85018; 85025; 85027; 85045; 85610; 85730; 86850; 86900; 86901; 86920; 88309; 88311; 94640; G0378; J3490; J7502; C1776; J1170; J1580; J1644; J2250; J2270; J2370; J2405; J2704; J2916; J7030; J7040; J7120; J7517; P9016

== ENCOUNTER 2021-06-15 10:11 | Outpatient (CLI) | payer MEDICARE ==
--- NOTE | 2021-06-15 12:14 | XRay Report ---
Right foot 3 views INDICATION: Pain FINDINGS: MTP joints and IP joints appear normal. Midfoot alignment appears normal. No acute fracture s seen. Signer Name: Demian Cowan MD Signed: 06/15/2021 12:10 PM Workstation Name: [id number]
--- NOTE | 2021-06-15 14:25 | XRay Report ---
2 AP views of the pelvis INDICATION: S72.009A. Generalized left hip pain COMPARISON: None available. IMPRESSION: Intact left hip arthroplasty with no hardware complication. Normal alignment. No signif icant DJD of the right hip. Mild generalized soft tissue swelling overlying the left hip. Signer Name: Gerry Pascual MD Signed: 06/15/2021 2:20 PM Workstation Name: [id number]
== END 2021-06-15 10:12 | disposition home or self-care (01) ==
LOC: XRAY 10:11
PROVIDERS: ATTEND Orthopaedic Surgery
DX: S72.009A Fracture of unspecified part of neck of unspecified femur, initial encounter for closed fracture (principal); M79.671 Pain in right foot; M79.89 Other specified soft tissue disorders; Z96.642 Presence of left artificial hip joint; X58.XXXA Exposure to other specified factors, initial encounter; Y93.89 Activity, other specified; Y92.89 Other specified places as the place of occurrence of the external cause; Y99.8 Other external cause status
CPT/HCPCS: 72170

== ENCOUNTER 2021-09-27 08:18 | Outpatient (CLI) | payer MEDICARE ==
--- NOTE | 2021-09-27 11:31 | XRay Report ---
LEFT HIP 2 VIEWS INDICATION: T84.94XA PAIN DUE TO LEFT HIP JOINT PROSTHESIS. COMPARISON: 05/26/2021. 06/15/2021. IMPRESSION: Left hip arthroplasty has been performed since the previous exam. The hardware appears w ell applied with anatomic alignment at the joint space. No acute osseous abnormality is detected. No change is appreciated since 06/15/2021 exam. Signer Name: Wolf Gannon Jr, MD Signed: 09/27/2021 11:27 AM Workstation Name: [id number]
== END 2021-09-27 08:19 | disposition home or self-care (01) ==
LOC: XRAY 08:18
PROVIDERS: ATTEND Nurse Practitioner Family
DX: S72.009A Fracture of unspecified part of neck of unspecified femur, initial encounter for closed fracture (principal); T84.84XA Pain due to internal orthopedic prosthetic devices, implants and grafts, initial encounter; M79.7 Fibromyalgia; G62.9 Polyneuropathy, unspecified; D86.89 Sarcoidosis of other sites; Z29.9 Encounter for prophylactic measures, unspecified; Z72.89 Other problems related to lifestyle; X58.XXXA Exposure to other specified factors, initial encounter; Y93.89 Activity, other specified; Y92.89 Other specified places as the place of occurrence of the external cause; Y99.8 Other external cause status